=== PATIENT | female | born 1935 | race Two or more races ===

== ENCOUNTER 2019-03-15 00:14 | Inpatient (IN) | payer MEDICARE ==
[~2019-03-15] VITALS: Ht 144.8 cm; Wt 55.1 kg
[2019-03-15 01:25] LABS: HEMATOCRIT 31.5 % (36.0-48.0); MCH 31.8 pg (26.0-34.0); MCHC 34.9 g/dL (31.0-37.0); MEAN PLATELET VOLUME 10.8 fL (7.4-10.4); PLATELET COUNT 255 10x3/uL (130-400); RBC 3.46 10x6/uL (4.00-5.40); RDW 12.6 % (11.5-14.5); WBC 15.7 10x3/uL (4.8-10.8)
[2019-03-15 01:26] LABS: BASOPHILS 0.1 % (0-2); EOSINOPHILS 0 % (0-7); IMMATURE GRANULOCYTES 0.6 % (0-5); LYMPHOCYTES 6.8 % (15-50); MONOCYTES 8.7 % (2-11); NEUTROPHILS 83.8 % (40-80)
[2019-03-15 01:31] VITALS: BP 98/61
--- NOTE | 2019-03-15 01:32 | NUR ---
URINE SAMPLE SENT TO LAB AT THIS TIME.
[2019-03-15 01:43] LABS: APTT 22.1 SECONDS (22.8-39.4); INR 1.01 (0.85-1.17); PROTIME 12.8 SECONDS (11.6-15.0)
[2019-03-15 01:52] LABS: LIPASE 338 U/L (73-393); MAGNESIUM - SERUM 2.4 mg/dL (1.8-2.4)
[2019-03-15 01:53] LABS: ALKALINE PHOSPHATASE 43 U/L (46-116); ALT (SGPT) 17 U/L (10-68); BILIRUBIN - TOTAL 0.53 mg/dL (0.2-1.3); CALC OSMOLALITY 301 mosm/kg (275-300); CALCIUM 9.6 mg/dL (8.5-10.1); CARBON DIOXIDE 23.2 mmol/L (21.0-32.0); CHLORIDE - SERUM 107 mmol/L (98-107); CREATININE - SERUM 1.3 mg/dL (0.6-1.3); GLUCOSE 117 mg/dL (74-106); POTASSIUM - SERUM 4.3 mmol/L (3.5-5.1); SODIUM 140 mmol/L (136-145); UREA NITROGEN 75 mg/dL (7-18); eGFR NON AFRICAN AMERICAN 41 mL/min (90-120)
[2019-03-15 01:54] LABS: CKMB 2.7 U/L (0.0-3.6); CREATINE KINASE 59 UL (21-215); TROPONIN-I 0.152 ng/mL (0.000-0.060)
[2019-03-15 01:55] LABS: APPEARANCE CLEAR (CLEAR); BILIRUBIN NEGATIVE (NEGATIVE); COLOR YELLOW (YELLOW); GLUCOSE NEGATIVE (NEGATIVE); KETONE NEGATIVE (NEGATIVE); NITRITE NEGATIVE (NEGATIVE); PROTEIN NEGATIVE (NEGATIVE); SPECIFIC GRAVITY 1.015 (1.005-1.020); UROBILINOGEN NORMAL (NORMAL)
[2019-03-15 01:57] LABS: BACTERIA NONE SEEN /hpf (NONE SEEN); EPITHELIAL CELLS 0-5 /hpf (0-5); RED CELLS - URINE 0-5 /hpf (0-5); WHITE CELLS - URINE 0-5 /hpf (0-5)
[2019-03-15 02:03] VITALS: BP 117/63
--- NOTE | 2019-03-15 02:10 | NUR ---
PT LEAVING ED VIA STRETCHER FOR ORDERED CT AT THIS TIME. NO SIGNS DISTRESS NOTED.
--- NOTE | 2019-03-15 02:25 | NUR ---
PT BACK IN ROOM FROM MEDICAL IMAGING AT THIS TIME. RESPIRATIONS ARE EVEN AND UNLABORED AT 12/MIN ON ROOM AIR AT 100% SPO2.
--- NOTE | 2019-03-15 02:53 | NUR ---
HAND-OFF REPORT GIVEN TO PRESLEY DE LA FUENTE AT THIS TIME.
[2019-03-15 04:04] VITALS: BP 110/56; BMI 20.6
--- NOTE | 2019-03-15 04:10 | NUR ---
RECIEVED REPORT FROM SUDHAKAR SHERWOOD IN ER. ARRIVED TO FLOOR ON STRETCHER. TRANSFERED SELF TO BED. ALERT AND ORINTED X4. UP AD SURYA. SON AT BEDSIDE. IV TO RIGHT AC WITH NS AT 125/HR AND PROTONIX AT 10CC/HR. DENIES ANY NEEDS AT THIS TIME. ASSESSMENTS COMPLETED.
[2019-03-15 06:00] LABS: ANION GAP 18.9 mmol/L (8-16); BILIRUBIN - TOTAL 0.69 mg/dL (0.2-1.3); CALCIUM 9.6 mg/dL (8.5-10.1); CARBON DIOXIDE 19.5 mmol/L (21.0-32.0); CREATININE - SERUM 1.4 mg/dL (0.6-1.3); POTASSIUM - SERUM 4.4 mmol/L (3.5-5.1)
[2019-03-15 06:01] LABS: ALBUMIN 3.1 g/dL (3.4-5.0); PROTEIN - SERUM 5.9 g/dL (6.4-8.2)
[2019-03-15 07:55] VITALS: BP 117/60
[2019-03-15 08:25] LABS: BASOPHILS 0.1 % (0-2); EOSINOPHILS 0.1 % (0-7); HEMATOCRIT 30.6 % (36.0-48.0); HEMOGLOBIN 10.9 g/dL (12-16); IMMATURE GRANULOCYTES 0.5 % (0-5); MCH 32.2 pg (26.0-34.0); MCHC 35.6 g/dL (31.0-37.0); MCV 90.5 fL (80.0-100.0); MEAN PLATELET VOLUME 11.6 fL (7.4-10.4); MONOCYTES 8.5 % (2-11); NEUTROPHILS 83.8 % (40-80); RBC 3.38 10x6/uL (4.00-5.40); RDW 12.8 % (11.5-14.5); WBC 15.1 10x3/uL (4.8-10.8)
[2019-03-15 08:26] LABS: PLATELET COUNT 178 10x3/uL (130-400)
--- NOTE | 2019-03-15 09:40 | NUR ---
CONSENTS SIGNED FOR EGD. WILL CONT. PLAN OF CARE.
[2019-03-15 12:12] LABS: HEMATOCRIT 24.1 % (36.0-48.0); HEMOGLOBIN 8.5 g/dL (12-16)
[2019-03-15 12:25] VITALS: BP 122/63
--- NOTE | 2019-03-15 12:39 | NUR ---
PRE-OPS GIVEN. TO HUMAN RESOURCES DIRECTOR BY BED.
[2019-03-15 13:14] LABS: % SATURATION 40 % (15-55); IRON 93 ug/dl (35-150); TOTAL IRON BIND CAPACITY 230 ug/dl (260-445); UNSAT IRON BIND CAPACITY 137 ug/dl (150-375)
[2019-03-15 13:42] LABS: FERRITIN 82 ng/mL (3-244)
[2019-03-15 14:27] VITALS: BMI 20.5
--- NOTE | 2019-03-15 19:00 | NUR ---
PT LAYING IN BED. NO S/S OF DISTRESS. DENIES ANY NEEDS AT THIS TIME. FAMILY AT BED SIDE. NAME AND DATE PLACED ON BOARD. PT WILL CALL FOR ASSIST WHEN NEEDED. WILL CPOC
--- NOTE | 2019-03-15 20:12 | NUR ---
SPOKE WITH CHARLES REGARDING PT COMPLAINT OF COUGH. NOTED THE DROP IN H AND H OBTAINED ORDERS AND READ BACK TO VERIFY. PLACING ORDERS NOW FOR CBC REDRAW. CARDIAC ENZYMES AND A CT WITH AND WITHOUT CONTRAST.
[2019-03-15 20:38] LABS: BASOPHILS 0.2 % (0-2); EOSINOPHILS 0.5 % (0-7); HEMOGLOBIN 8.4 g/dL (12-16); IMMATURE GRANULOCYTES 0.4 % (0-5); LYMPHOCYTES 8.3 % (15-50); MCH 32.4 pg (26.0-34.0); MEAN PLATELET VOLUME 10.1 fL (7.4-10.4); MONOCYTES 8.8 % (2-11); NEUTROPHILS 81.8 % (40-80); PLATELET COUNT 172 10x3/uL (130-400)
--- NOTE | 2019-03-15 20:48 | NUR ---
LEFT AC IV 20G FLUSHED AND PLACED A NEW DRSG. CALLED CT BACK AND CT IS ON THERE WAY TO GET PT. PT AWARE AND DENIES ANY QUESTIONS OR CONCERNS. WILL CPOC
[2019-03-15 21:03] LABS: MCV 92.7 fL (80.0-100.0); RBC 2.59 10x6/uL (4.00-5.40); WBC 10.9 10x3/uL (4.8-10.8)
[2019-03-15 21:25] LABS: CKMB 8.4 U/L (0.0-3.6); CREATINE KINASE 123 UL (21-215)
[2019-03-15 21:28] LABS: TROPONIN-I 0.238 ng/mL (0.000-0.060)
--- NOTE | 2019-03-15 21:29 | NUR ---
PT BACK FROM CT. 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
--- NOTE | 2019-03-15 21:33 | NUR ---
PT COMPLAINS OF PAIN IN LEFT AC IV. REMOVED WITH CATH INTACT. WILL REPLACE SOON POSSIBLE. PT HAS NO S/S OF DISTRESS. DENIES ANY QUESTIONS OR CONCERNS. WILL CPOC
--- NOTE | 2019-03-16 00:05 | NUR ---
2 ATTEMPTS FOR PIV ACCESS. UNSUCCESSFUL. WILL ASK ANOTHER NURSE TO ATTEMPT. PT HAS NO S/S OF DISTRESS. BED LOW AND CALL LIGHT IN REACH. WILL CPOC
--- NOTE | 2019-03-16 00:09 | NUR ---
SPOKE WITH ER. NURSE WILL COME OVER AND ATTEMPT IV ACCESS.
--- NOTE | 2019-03-16 03:28 | NUR ---
CALLED ICU AND SPOKE WITH NURSE DUE TO ER NOT STARTING IV YET AT THIS TIME. ICU WILL COME WHEN ABLE
[2019-03-16 04:00] VITALS: BP 132/68
--- NOTE | 2019-03-16 04:34 | NUR ---
22G LEFT WRIST PLACED BY ER NURSE. STARTED NS BACK ORDERED. PT HAS NO S/S OF DISTRESS. WILL CPOC
[2019-03-16 04:41] LABS: BASOPHILS 0.2 % (0-2); EOSINOPHILS 0.4 % (0-7); HEMATOCRIT 24.3 % (36.0-48.0); HEMOGLOBIN 8.4 g/dL (12-16); IMMATURE GRANULOCYTES 0.4 % (0-5); LYMPHOCYTES 9.4 % (15-50); MCH 32.2 pg (26.0-34.0); MCHC 34.6 g/dL (31.0-37.0); MCV 93.1 fL (80.0-100.0); MEAN PLATELET VOLUME 10.4 fL (7.4-10.4); MONOCYTES 8.9 % (2-11); NEUTROPHILS 80.7 % (40-80); PLATELET COUNT 188 10x3/uL (130-400); RBC 2.61 10x6/uL (4.00-5.40); WBC 10.5 10x3/uL (4.8-10.8)
--- NOTE | 2019-03-16 04:42 | NUR ---
PT EXPRESSES CONFUSION BUT ANSWERS QUESTIONS CORRECTLY. NO S/S OF DISTRESS. SON AT BED SIDE. NS INFUSING AT 75 WILL CPOC
[2019-03-16 05:35] LABS: CALCIUM 8.3 mg/dL (8.5-10.1); CARBON DIOXIDE 19.6 mmol/L (21.0-32.0); CHLORIDE - SERUM 115 mmol/L (98-107); CKMB 9.8 U/L (0.0-3.6); CREATINE KINASE 199 UL (21-215); GLUCOSE 108 mg/dL (74-106); SODIUM 148 mmol/L (136-145)
[2019-03-16 05:36] LABS: CALC OSMOLALITY 305 mosm/kg (275-300); POTASSIUM - SERUM 3.3 mmol/L (3.5-5.1); TROPONIN-I 0.213 ng/mL (0.000-0.060); UREA NITROGEN 43 mg/dL (7-18); eGFR NON AFRICAN AMERICAN 56 mL/min (90-120)
--- NOTE | 2019-03-16 07:36 | NUR ---
ASKING ABOUT MED REC. PT IS WRITING MEDICATIONS THAT SHE TAKES DAILY, LIKE LUPUS MEDICATION. PT DOES NOT KNOW MG OF MEDS. INFORMED SON TO BRING LIST WHEN ABLE. SON VERBALIZED UNDERSTANDING, WILL PASS TO DAY NURSE. CARAFATE GIVEN ORDERED. WILL CPOC
--- NOTE | 2019-03-16 07:58 | NUR ---
REPORT RECEIVED. WILL CONTINUE WITH POC. PT CURRENTLY SITTING UP IN BED. CALL LIGHT W/I REACH. PT IS AAO AND UP WITH ASSIST. RR EVEN AND UNLABORED ON RA. NS INFUSING @75ML/HR VIA L.WRIST PIV. PT ON AIRBORNE PRECAUTIONS. NO S/S OF DISTRESS NOTED. PT DENIES ANY NEEDS. WILL CTM.
[2019-03-16 08:30] VITALS: BP 138/69
[2019-03-16 09:31] LABS: CKMB 9.8 U/L (0.0-3.6); CREATINE KINASE 236 UL (21-215)
[2019-03-16 09:33] LABS: TROPONIN-I 0.212 ng/mL (0.000-0.060)
--- NOTE | 2019-03-16 11:52 | NUR ---
SPOKE WITH JARETT AND WHO VERIFIED THAT PT IS CLEAR TO COME OFF OF ISOLATION. WILL REMOVE ISOLATION PRECAUTIONS. WILL CTM.
[2019-03-16 12:59] VITALS: BP 150/80
[2019-03-16] MEDS ORDERED: XANAX0.25 MG PO (13:01)
[2019-03-16] MEDS ORDERED: TENORMIN100 MG PO (13:02)
[2019-03-16] MEDS ORDERED: BUSPIRONE HCL30 MG PO (13:02)
[2019-03-16] MEDS ORDERED: CATAPRES0.1 MG PO (13:03)
[2019-03-16] MEDS ORDERED: SINEQUAN25 MG PO (13:04)
[2019-03-16] MEDS ORDERED: HYDROXYCHLOROQUINE PO (13:08)
[2019-03-16] MEDS ORDERED: RELAFEN500 MG PO (13:09)
[2019-03-16] MEDS ORDERED: ZYRTEC10 MG PO (13:10)
[2019-03-16] MEDS ORDERED: HYDROCODON-ACE1 EAC7 PO (13:10)
[2019-03-16] MEDS ORDERED: CALTRATE+D3 PL1 EACH PO (13:10)
[2019-03-16] MEDS ORDERED: CENTRUM SILVER1 EAC3 PO (13:11)
[2019-03-16] MEDS ORDERED: MAG-OXIDE400 MG PO (13:11)
[2019-03-16] MEDS ORDERED: EX-LAX MAXIMUM25 MG PO (13:12)
[2019-03-16 14:02] VITALS: Ht 144.8 cm; Wt 55.1 kg
[2019-03-16 14:08] LABS: T4 THYROXIN - FREE 1.8 ng/dL (0.76-1.46); THYROID STIMULATING HORMONE 2.11 uIU/mL (0.36-3.74)
[2019-03-16 16:04] VITALS: BP 132/64
--- NOTE | 2019-03-16 16:29 | NUR ---
I have reviewed this patient and I concur with the Shift Assessment completed by the Licensed Practical Nurse today this shift.
--- NOTE | 2019-03-16 19:00 | NUR ---
PATIENT LAYING IN BED. PATIENT HAS NO COMPLAINTS AT THIS TIME. NO DISTRESS NOTED.
[2019-03-16 20:00] VITALS: BP 141/78
[2019-03-17] VITALS: BP 139/91
[2019-03-17 04:00] VITALS: BP 144/79
[2019-03-17 05:38] LABS: BASOPHILS 0.3 % (0-2); EOSINOPHILS 1.3 % (0-7); HEMATOCRIT 20.9 % (36.0-48.0); IMMATURE GRANULOCYTES 0.9 % (0-5); LYMPHOCYTES 11.8 % (15-50); MCH 32.7 pg (26.0-34.0); MCHC 34.9 g/dL (31.0-37.0); MCV 93.7 fL (80.0-100.0); MEAN PLATELET VOLUME 10.3 fL (7.4-10.4); MONOCYTES 10.8 % (2-11); NEUTROPHILS 74.9 % (40-80); PLATELET COUNT 151 10x3/uL (130-400); RBC 2.23 10x6/uL (4.00-5.40); RDW 13.3 % (11.5-14.5); WBC 7.9 10x3/uL (4.8-10.8)
[2019-03-17 06:26] LABS: HEMOGLOBIN 7.3 g/dL (12-16)
[2019-03-17 06:27] LABS: CARBON DIOXIDE 18.6 mmol/L (21.0-32.0); CHLORIDE - SERUM 115 mmol/L (98-107); GLUCOSE 87 mg/dL (74-106); POTASSIUM - SERUM 3.1 mmol/L (3.5-5.1); SODIUM 146 mmol/L (136-145)
[2019-03-17 06:30] LABS: CALC OSMOLALITY 290 mosm/kg (275-300); CREATININE - SERUM 0.6 mg/dL (0.6-1.3); UREA NITROGEN 16 mg/dL (7-18); eGFR NON AFRICAN AMERICAN > 90 mL/min (90-120)
--- NOTE | 2019-03-17 06:37 | NUR ---
PATIENT HAS CRITICAL LAB HGB OF 7.3. CHARLES WRIGHT NOTIFIED. NEW ORDER FOR OCCULT STOOL.
--- NOTE | 2019-03-17 07:24 | NUR ---
REPORT RECEIVED. WILL CONTINUE WITH POC. PT CURRENTLY LYING SEMI FOWLERS. CALL LIGHT W/I REACH. FAMILY AT BEDSIDE. RR EVEN AND UNLABORED ON RA. NS INFUSING @75ML/HR VIA L.FOR PIV ALONG WITH 10MEQ POTASSIUM RIDER. NO S/S OF DISTRESS. PT DENIES ANY NEEDS. WILL CTM.
--- NOTE | 2019-03-17 09:05 | NUR ---
NOTIFIED AMBAR WRIGHT OF PT H&H. VERBALLY ORDERED 2 UNITS OF BLOOD. PLACED ORDER. WILL INFUSE WHEN READY.
--- NOTE | 2019-03-17 11:50 | NUR ---
BRONCHOSCOPY COMPLETE. PT RESTING LYING SEMI FOWLERS. NO S/S OF DISTRESS. RR EVEN AND UNLABORED ON RA. PT DENIES ANY NEEDS. PT WILL REMAIN NPO FOR NEXT HOUR. WILL CTM.
--- NOTE | 2019-03-17 13:25 | NUR ---
DILIP SHERWOOD BEGAN TRANSFUSION OF BLOOD. UPON SPIKING THE FIRST UNIT OF BLOOD, THE BAG TORE ON SPIKING THE BAG AND BEGAN TO LEAK. WASTED THE UNIT OF BLOOD INTO A BIOHAZARD BAG. RETRIEVED SECOND UNIT OF BLOOD. SECOND UNIT CURRENTLY INFUSING. ORDERED ONE MORE UNIT OF BLOOD TO REPLACE LOST FIRST UNIT. PT CURRENTLY RESTING. CALL LIGHT W/I REACH. FAMILY AT BEDSIDE. NO S/S OF RX PRESENT. WILL CTM.
--- NOTE | 2019-03-17 14:00 | NUR ---
NOTIFIED OF THE CRITICAL H&H. HE STATED THAT WAS TO BE EXPECTED AND THAT HE AGREED WITH 2 UNITS OF BLOOD ORDERED. WILL CTM.
--- NOTE | 2019-03-17 14:21 | NUR ---
RECEIVED VERBAL ORDER PER VOICE TO CANCLE OCCULT STOOL ORDER. WILL DC ORDER. WILL CTM.
--- NOTE | 2019-03-17 16:49 | NUR ---
SECOND UNIT OF BLOOD HUNG. VSS AND WNL. WILL CTM.
[2019-03-17 17:02] LABS: EOS BF 6 %; MACROPHAGES BF 54 %; MESOTHELIALS BF 5 %; NEUT - BF 30 %
[2019-03-17 17:29] VITALS: BP 146/75
--- NOTE | 2019-03-17 19:15 | NUR ---
REPORT RECEIVED, WILL CONTINUE POC. PATIENT IS A&OX3, UP WITH ASSIST. SHE HAS IV TO LT FA WITH BLOOD PRODUCTS TRANSFUSING. NO S/SX OF DISTRESS IS NOTED. FAMILY AT BEDSIDE. PATIENT DENIES NEEDS AT THIS TIME. CL IN REACH, BED LOCKED AND LOWERED. WILL CTM.
[2019-03-17 20:00] VITALS: BP 168/87
[2019-03-18] VITALS: BP 180/87
[2019-03-18 04:00] VITALS: BP 147/80
[2019-03-18 05:48] LABS: BASOPHILS 0.1 % (0-2); EOSINOPHILS 0.1 % (0-7); IMMATURE GRANULOCYTES 0.7 % (0-5); LYMPHOCYTES 5.4 % (15-50); MCH 28.2 pg (26.0-34.0); MCHC 34.3 g/dL (31.0-37.0); MEAN PLATELET VOLUME 10.1 fL (7.4-10.4); NEUTROPHILS 86.7 % (40-80)
[2019-03-18 05:49] LABS: CARBON DIOXIDE 17.1 mmol/L (21.0-32.0); CHLORIDE - SERUM 115 mmol/L (98-107); CREATININE - SERUM 0.5 mg/dL (0.6-1.3); GLUCOSE 79 mg/dL (74-106); SODIUM 144 mmol/L (136-145); eGFR NON AFRICAN AMERICAN > 90 mL/min (90-120)
[2019-03-18 05:50] LABS: HEMATOCRIT 27.4 % (36.0-48.0); HEMOGLOBIN 9.4 g/dL (12-16); MCV 82.3 fL (80.0-100.0); PLATELET COUNT 106 10x3/uL (130-400); RBC 3.33 10x6/uL (4.00-5.40); WBC 16.2 10x3/uL (4.8-10.8)
[2019-03-18 05:52] LABS: CALC OSMOLALITY 284 mosm/kg (275-300); UREA NITROGEN 9 mg/dL (7-18)
[2019-03-18 05:53] LABS: CALCIUM 6.3 mg/dL (8.5-10.1); POTASSIUM - SERUM 2.4 mmol/L (3.5-5.1)
--- NOTE | 2019-03-18 07:30 | NUR ---
A/A/OX4. C/O PAIN IN RIGHT ARM WHERE IV IS SITED. THE AREA IS RED AND SLIGHTLY SWOLLEN AND REQUESTS IT BE CHANGED TO ANOTHER SITE. IV RIGHT FOREARM DC'D WITH TIP INTACT. RESTARTED IN RIGHT HAND AND IV INFUSING WELL WITH NO C/O ANY PAIN. ASSESSMENT COMPLETED AND WILL CONTINUE POC. STATES SHE IS FEELING A LITTLE BETTER TODAY. BED IN LOW LOCKED POSITION AND CALL LIGHT IN REACH. RECEIVING POTASSIUM SUPPLEMENT FOR K+ OF 2.4.
[2019-03-18 09:58] VITALS: BP 150/83
--- NOTE | 2019-03-18 11:32 | MORECARE ---
CASE MANAGEMENT DISCHARGE SUMMARY PATIENT: NAKIA WALL UNIT: [id number] ADM DATE: 03/15/19 AGE: 83 : 34 SEX: F ROOM/BED: D.2101 AUTHOR: TESSA LOO PHYSICIAN: REFERRING PHYSICIAN: DALLAS POOLE MD DATE OF SERVICE: 03/18/19 Discharge Plan Patient Name: NAKIA WALL Facility: [facility]:[place] : 1935 Planned Disposition: Home Anticipated Discharge Date: Discharge Date: Expected LOS: Initial Reviewer: [email or web address] Initial Review Date: 03/18/2019 Generated: 03/18/19 12:31 pm Coverage Notice Reviewer: [id number] - Cesar Ayoub Notice Issued Date-Time: 03/18/2019 10:00 Notice Type: IM Discharge Notice Notice Delivered To: Patient Relationship to Patient: Environmental Health Physician Name: Delivery Method: HAND - Hand Delivered Fernanda Days: Prior Verbal Notification: Recipient Understood Notice: Yes Recipient Signature: Yes Med Rec Note Co-signed by Attending: Coverage Notice Comment: Patient Name: NAKIA WALL Page [phone] at 1132 All edits/amendments must be made on the electronic document DICTATION DATE: 03/18/19 1131 BINDING CUTTER: PERI 03/18/19 1131 RPT#: [id number] DC DATE: STATUS: ADM IN [place] [address] [place] [address] END OF REPORT
--- NOTE | 2019-03-18 11:43 | MORECARE ---
CASE MANAGEMENT DISCHARGE SUMMARY PATIENT: NAKIA WALL UNIT: [id number] ADM DATE: 03/15/19 AGE: 83 : 34 SEX: F ROOM/BED: D.2102 AUTHOR: TESSA LOO PHYSICIAN: REFERRING PHYSICIAN: DALLAS POOLE MD DATE OF SERVICE: 03/18/19 Discharge Plan Patient Name: NAKIA WALL Facility: [facility]:[place] : 1935 Planned Disposition: Home Anticipated Discharge Date: Discharge Date: Expected LOS: Initial Reviewer: [email or web address] Initial Review Date: 03/18/2019 Generated: 03/18/19 12:42 pm DCPIA - Discharge Planning Initial Assessment Updated by TOM: Cesar Ayoub on 03/18/19 11:37 am * Is the patient Alert and Oriented? Yes * How many steps to enter\exit or inside your home? 6 W/ RAILS * PCP DR. ELLIS * Pharmacy [facility] [address], [facility] [address] * Preadmission Environment Home with Family * ADLs Independent * Equipment Cane * Other Equipment NO MEDICAL EQUIPMENT PROVIDER PREFERENCE * List name and contact numbers for known caregivers / representatives who currently or will assist patient after discharge: NAIMA WALL, SON, * Verbal permission to speak to the caregivers and representatives has been obtained from the patient. Yes * Community resources currently utilized None * Please name any agencies selected above. NONE * Additional services required to return to the preadmission environment? No * Can the patient safely return to the preadmission environment? Yes * Has this patient been hospitalized within the prior 30 days at any hospital? No Coverage Notice Reviewer: [id number] - Cesar Ayoub Notice Issued Date-Time: 03/18/2019 10:00 Notice Type: IM Discharge Notice Notice Delivered To: Patient Relationship to Patient: Substitute Bus Driver Name: Delivery Method: HAND - Hand Delivered Fernanda Days: Prior Verbal Notification: Recipient Understood Notice: Yes Recipient Signature: Yes Med Rec Note Co-signed by Attending: Coverage Notice Comment: Last DP export: 03/18/19 10:32 a Patient Name: NAKIA WALL Page [phone] at 1143 All edits/amendments must be made on the electronic document DICTATION DATE: 03/18/19 114 NEUROSURGERY PHYSICIAN: PERI 03/18/19 1142 RPT#: [id number] DC DATE: STATUS: ADM IN [facility] [address] [place] [address] END OF REPORT
--- NOTE | 2019-03-18 11:52 | MORECARE ---
CASE MANAGEMENT DISCHARGE SUMMARY PATIENT: NAKIA WALL UNIT: [id number] ADM DATE: 03/15/19 AGE: 83 : 34 SEX: F ROOM/BED: D.2102 AUTHOR: CINDA,DOC PHYSICIAN: REFERRING PHYSICIAN: DALLAS POOLE MD DATE OF SERVICE: 03/18/19 Discharge Plan Patient Name: NAKIA WALL Facility: [facility]:[place] : 1935 Planned Disposition: Home Anticipated Discharge Date: Discharge Date: Expected LOS: Initial Reviewer: [id number] Initial Review Date: 03/18/2019 Generated: 03/18/19 12:51 pm Comments DCP- Discharge Planning Updated by [id number]: Cesar Ayoub on 03/18/19 10:[address] Patient Name: NAKIA WALL Admission Status: ER Accout number: [id number] Admission Date: 03-15-2019 : 1935 Admission Diagnosis:GASTROINTESTINAL HEMORRHAGE, UNSPECIFIED Attending: DALLAS POOLE Current LOS: 3 Anticipated DC Date: Planned Disposition: Home Primary Insurance: MEDICARE A & B Discharge Planning Comments: CM MET WITH PT IN ROOM TO DISCUSS DISCHARGE PLANNING AND NEEDS. PT REPORTS LIVING AT HOME INDEPENDENTLY WITH HER SON. PT HAS A CANE WITH NO MEDICAL EQUIPMENT PROVIDER PREFERENCE. PTHAS NO OUTSIDE SERVICES ASSISTING IN THE HOME. CM DISCUSSED AVAILABILITY OF HOME HEALTH, REHAB SERVICES AND MEDICAL EQUIPMENT. PT DENIES DISCHARGE NEEDS STATING SHE REALLY DOES NOT LIKE OUTSIDE PEOPLE IN HER HOME. PT REPORTS SOME WEAKNESS, CM ENCOURAGED PT TO AGREE TO REHAB BEFORE GOING HOME, PT DECLINES. PT'S DAUGHTER ALSO REPORTS NO PLAN FOR REHAB AND THAT PT WILL RETURN HOME WITH PT'S SON AT DISCHARGE, PT REPORTS HER FAMILY WILL PICK HER UP FOR DISCHARGE HOME. IMPORTANT MESSAGE FROM MEDICARE PROVIDED AND EXPLAINED. PT PLANS TO DISCHARGE HOME WITH HER ADULT SON. PT HAS NO ANTICIPATED DISCHARGE NEEDS. CM TO FOLLOW AND ASSIST IF NEEDED. Professor Of Latin American Studies: Cesar Ayoub DCPIA - Discharge Planning Initial Assessment Updated by [id number]: Cesar Ayoub on 03/18/19 11:37 am * Is the patient Alert and Oriented? Yes * How many steps to enter\exit or inside your home? 6 W/ RAILS * PCP DR. ELLIS * Pharmacy [facility] [address] [place] [address] * Preadmission Environment Home with Family * ADLs Independent * Equipment Cane * Other Equipment NO MEDICAL EQUIPMENT PROVIDER PREFERENCE * List name and contact numbers for known caregivers / representatives who currently or will assist patient after discharge: NAIMA WALL, SON, * Verbal permission to speak to the caregivers and representatives has been obtained from the patient. Yes * Community resources currently utilized None * Please name any agencies selected above. NONE * Additional services required to return to the preadmission environment? No * Can the patient safely return to the preadmission environment? Yes * Has this patient been hospitalized within the prior 30 days at any hospital? No Coverage Notice Reviewer: [id number] Kirill Ayoub Notice Issued Date-Time: 03/18/2019 10:00 Notice Type: IM Discharge Notice Notice Delivered To: Patient Relationship to Patient: Lawn Mower Repairer Name: Delivery Method: HAND - Hand Delivered Fernanda Days: Prior Verbal Notification: Recipient Understood Notice: Yes Recipient Signature: Yes Med Rec Note Co-signed by Attending: Coverage Notice Comment: Last DP export: 03/18/19 10:43 a Patient Name: NAKIA WALL Page [phone] at 1152 All edits/amendments must be made on the electronic document DICTATION DATE: 03/18/191150 VIDEOGRAPHER: PERI 03/18/19 115 RPT#: [id number] DC DATE: STATUS: ADM IN [facility] [address] [place] [address] END OF REPORT
--- NOTE | 2019-03-18 12:35 | NUR ---
Nutrition Follow-up: Visited with pt during breakfast this AM; very little eaten. Pt/family reports decreased appetite for ~2 wks CONSUMER SAFETY INSPECTOR. States that food just doesn't taste good. Also having some difficulty chewing; reports some of her teeth have fallen out since being sick. Diet: Regular Wt: 121# Last BM: 03/17 Labs reviewed Meds reviewed Adjusted diet: Regular Dental Soft. +Ensure 1x/day. [place] food preferences. RD following.
[2019-03-18 13:46] VITALS: BP 151/88
[2019-03-18 15:10] LABS: AFB SPECIMEN PROCESSING Concentration (())
--- NOTE | 2019-03-18 16:40 | NUR ---
I have reviewed this patient and I concur with the Shift Assessment completed by the Licensed Practical Nurse today this shift.
[2019-03-18 17:59] VITALS: BP 165/99
--- NOTE | 2019-03-18 19:30 | NUR ---
PT CARE ASSUMED. RR EVEN AN UNLABORED. NO S/S OF DISTRESS NOTED. DENIES NEEDS AT THIS TIME. WILL CPOC.
[2019-03-18 20:00] VITALS: BP 142/84
--- NOTE | 2019-03-18 22:32 | NUR ---
D/C IV TO RIGHT HAND. CATHETER TIP INTACT.
[2019-03-19] VITALS: BP 165/93
[2019-03-19 03:47] LABS: CALC OSMOLALITY 283 mosm/kg (275-300); CARBON DIOXIDE 18.9 mmol/L (21.0-32.0); CHLORIDE - SERUM 111 mmol/L (98-107); CREATININE - SERUM 0.6 mg/dL (0.6-1.3); GLUCOSE 100 mg/dL (74-106); POTASSIUM - SERUM 3.2 mmol/L (3.5-5.1); SODIUM 143 mmol/L (136-145); UREA NITROGEN 11 mg/dL (7-18); eGFR NON AFRICAN AMERICAN > 90 mL/min (90-120)
[2019-03-19 03:57] LABS: BASOPHILS 0.1 % (0-2); EOSINOPHILS 0.5 % (0-7); IMMATURE GRANULOCYTES 0.5 % (0-5); LYMPHOCYTES 3.9 % (15-50); MCH 28.6 pg (26.0-34.0); MCHC 34.9 g/dL (31.0-37.0); MCV 81.9 fL (80.0-100.0); MONOCYTES 8.8 % (2-11); NEUTROPHILS 86.2 % (40-80); WBC 12.7 10x3/uL (4.8-10.8)
[2019-03-19 03:58] LABS: HEMATOCRIT 33.5 % (36.0-48.0); HEMOGLOBIN 11.7 g/dL (12-16); PLATELET COUNT 133 10x3/uL (130-400); RBC 4.09 10x6/uL (4.00-5.40)
[2019-03-19 04:00] VITALS: BP 181/98
[2019-03-19 04:01] LABS: CALCIUM 8.3 mg/dL (8.5-10.1)
--- NOTE | 2019-03-19 07:30 | NUR ---
A/A/OX4. EXPRESSES DESIRE TO BE ABLE TO GO HOME TODAY. DENIES ANY PAIN, DISCOMFORT OR SOB. NO REQUESTS VOICED. ASSESSMENT COMPLETED AND WILL CONTINUE POC. BED IN LOW LOCKED POSITION, CALL LIGHT IN REACH.
[2019-03-19 09:58] VITALS: BP 173/81
[2019-03-19] MEDS ORDERED: PROTONIX40 MG PO (14:16)
[2019-03-19] MEDS ORDERED: CARAFATE1 G PO (14:16)
--- NOTE | 2019-03-19 14:32 | NUR ---
RESTING IN BED. NO DISTRESS. PATIENTS DAUGHTER AT BEDSIDE. PATIENT AWAITING HER DISCHARGE PAPERS AT THIS TIME.
[2019-03-19 14:51] VITALS: BP 167/82
--- NOTE | 2019-03-19 16:10 | NUR ---
DISCHARGE INSTRUCTIONS REVIEWED WITH PT AND HER DAUGHTER. BOTH VERBALIZE UNDERSTANDING WITH NO QUESTIONS. SL REMOVED FROM LEFT AC WITH CATH TIP INTACT. LEFT FLOOR VIA W/C WITH ALL PERSONAL BELONGINGS AND LEFT FACILITY VIA PRIVATE VEHICLE WITH DAUGHTER.
--- NOTE | 2019-03-20 09:24 | EC ---
PATIENT:NAKIA WALL DATE OF SERVICE: 03/15/19 SEX: F MEDICAL RECORD: [id number] DATE OF : [birth year] LOCATION:D.M2 D.210 AGE OF PATIENT: 83 ADMISSION DATE: 03/15/19 REFERRING PHYSICIAN: INTERPRETING PHYSICIAN: LINDSAY WHEELER MD ECHOCARDIOGRAM REPORT ECHO CHARGES 4 ECHO COMPLETE Date: 03/15/19 CLINICAL DIAGNOSIS: PERICARDIAL EFFUSION ECHOCARDIOGRAPHIC MEASUREMENTS (adult normal given) AC root (d.<3.7cm) 2.6 cm LV Septum d (<1.2 cm> 0.8 cm Valve Excursion 1.4 cm LV Septum (systole) 1.2 cm Left Atria (s.<4.0cm> 3.3 cm LVPW d(<1.2cm) 1.0 cm RV (d.<2.3cm) 2.1 cm LVPW (sytole) 1.2 cm LV diastole(<5.6CM) 3.5 cm MV E-F(>70mm/sec) cm LV systole 2.0 cm LVOT Diameter 1.3 cm MV exc.(>10mm) cm Est.ejection fraction (50-75%) % DOPPLER: LVIT cm/sec A 136 cm/sec E 93 cm/sec LA cm/sec RVSP 41.0 mmHg LVOT 149 cm/sec AOP1/2T m/s Asc. Ao 147 cm/sec RVOT 148 cm/sec RA cm/sec PA 138 cm/sec AV Gradient Peak 8.7 mmHg AV Mean 7.3 mmHg AV Area 1.1 cm MV Gradient Peak mmHg MV Mean mmHg MV Area cm COMMENTS: Model And Mold Maker: Loren UMANA Kitman: 3 Dr. Perez TAPE# PACS Pericardial Effusion Y DATE OF SERVICE: Adequate 2D, color flow, spectral Doppler, and M-mode. No LVH. LV internal dimensions are normal. Wall motion is normal. EF is greater than or equal to 55%. Aortic valve is tricuspid. No evidence of stenosis by Doppler interrogation. Left atrium is normal. Mitral valve shows no prolapse. Trace MR. Right-sided chambers appear grossly normal. Mild TR. Moderate to mostly anterior located pericardial effusion is present. This shows no evidence of hemodynamic compromise. ECHOCARDIOGRAM REPORT [id number] NAKIA WALL TRANSINT:[id number] Voice Confirmation ID: [id number] DOCUMENT ID: [id number] LINDSAY WHEELER MD at 0924 CC: [id number] DICTATION DATE: 03/16/19 1029 MELTER SUPERVISOR: 03/16/19 1230 DIS IN 03/19/[address] [place] [id number] [place] [id number]
--- NOTE | 2019-03-21 08:44 | MORECARE ---
CASE MANAGEMENT DISCHARGE SUMMARY PATIENT: NAKIA WALL UNIT: [id number] ADM DATE: 03/15/19 AGE: 83 : 34 SEX: F ROOM/BED: D.210 AUTHOR: CINDA,DOC PHYSICIAN: REFERRING PHYSICIAN: DALLAS POOLE MD DATE OF SERVICE: 03/21/19 Discharge Plan Patient Name: NAKIA WALL Facility: [facility]:[place] : 1935 Planned Disposition: Home Anticipated Discharge Date: 03/19/19 Discharge Date: 03/19/2019 Expected LOS: 4 Initial Reviewer: [id number] Initial Review Date: 03/18/2019 Generated: 03/21/19 9:44 am Comments DCP- Discharge Planning Updated by [id number]: Cesar Ayoub on 03/18/19 10:[address] Patient Name: NAKIA WALL Admission Status: ER Accout number: [id number] Admission Date: 03-15-2019 : 1935 Admission Diagnosis:GASTROINTESTINAL HEMORRHAGE, UNSPECIFIED Attending: DALLAS POOLE Current LOS: 3 Anticipated DC Date: Planned Disposition: Home Primary Insurance: MEDICARE A & B Discharge Planning Comments: CM MET WITH PT IN ROOM TO DISCUSS DISCHARGE PLANNING AND NEEDS. PT REPORTS LIVING AT HOME INDEPENDENTLY WITH HER SON. PT HAS A CANE WITH NO MEDICAL EQUIPMENT PROVIDER PREFERENCE. PTHAS NO OUTSIDE SERVICES ASSISTING IN THE HOME. CM DISCUSSED AVAILABILITY OF HOME HEALTH, REHAB SERVICES AND MEDICAL EQUIPMENT. PT DENIES DISCHARGE NEEDS STATING SHE REALLY DOES NOT LIKE OUTSIDE PEOPLE IN HER HOME. PT REPORTS SOME WEAKNESS, CM ENCOURAGED PT TO AGREE TO REHAB BEFORE GOING HOME, PT DECLINES. PT'S DAUGHTER ALSO REPORTS NO PLAN FOR REHAB AND THAT PT WILL RETURN HOME WITH PT'S SON AT DISCHARGE, PT REPORTS HER FAMILY WILL PICK HER UP FOR DISCHARGE HOME. IMPORTANT MESSAGE FROM MEDICARE PROVIDED AND EXPLAINED. PT PLANS TO DISCHARGE HOME WITH HER ADULT SON. PT HAS NO ANTICIPATED DISCHARGE NEEDS. CM TO FOLLOW AND ASSIST IF NEEDED. Table Machine Operator: Cesar Ayoub DCPIA - Discharge Planning Initial Assessment Updated by [id number]: Cesar Ayoub on 03/18/19 11:37 am * Is the patient Alert and Oriented? Yes * How many steps to enter\exit or inside your home? 6 W/ RAILS * PCP DR. ELLIS * [facility] [address] [place] [address] * Preadmission Environment Home with Family * ADLs Independent * Equipment Cane * Other Equipment NO MEDICAL EQUIPMENT PROVIDER PREFERENCE * List name and contact numbers for known caregivers / representatives who currently or will assist patient after discharge: NAIMA WALL, SON, * Verbal permission to speak to the caregivers and representatives has been obtained from the patient. Yes * Community resources currently utilized None * Please name any agencies selected above. NONE * Additional services required to return to the preadmission environment? No * Can the patient safely return to the preadmission environment? Yes * Has this patient been hospitalized within the prior 30 days at any hospital? No Coverage Notice Reviewer: [id number] Kirill Ayoub Notice Issued Date-Time: 03/18/2019 10:00 Notice Type: IM Discharge Notice Notice Delivered To: Patient Relationship to Patient: Through Operator Name: Delivery Method: HAND - Hand Delivered Fernanda Days: Prior Verbal Notification: Recipient Understood Notice: Yes Recipient Signature: Yes Med Rec Note Co-signed by Attending: Coverage Notice Comment: Last DP export: 03/18/19 10:52 a Patient Name: NAKIA WALL Page [phone] at 0844 All edits/amendments must be made on the electronic document DICTATION DATE: 03/21/19842 HOME SALES CONSULTANT: PERI 03/21/19842 RPT#: [id number] DC DATE:03/19/19 STATUS: DIS IN [facility] [address] [place] [address] END OF REPORT
[2019-03-21 10:09] LABS: FUNGUS STAIN Final report (())
[2019-03-25 19:08] LABS: FUNGUS CULTURE RESULT 1 Candida albicans (())
[2019-04-14 14:09] LABS: FUNGUS MYCOLOGY CULTURE Final report (())
[2019-05-10 09:10] LABS: ACID FAST CULTURE Negative (()); ACID FAST SMEAR Negative (())
== END 2019-03-19 16:39 | disposition home or self-care (01) | DRG 378 ==
LOC: D.ER 00:14 → D.M2 02:25
PROVIDERS: Family Medicine; Internal Medicine Gastroenterology; ADMIT Internal Medicine Nephrology; ATTEND Internal Medicine Nephrology
PROC: 0DJ08ZZ Inspection of Upper Intestinal Tract, Via Natural or Artificial Opening Endoscopic (ICD-10-PCS; principal; 2019-03-15 12:30)
PROC: 0B9G7ZX Drainage of Left Upper Lung Lobe, Via Natural or Artificial Opening, Diagnostic (ICD-10-PCS; 2019-03-17)
DX: K92.2 Gastrointestinal hemorrhage, unspecified (principal); I31.3 Pericardial effusion (noninflammatory); D62 Acute posthemorrhagic anemia; N17.9 Acute kidney failure, unspecified; K27.9 Peptic ulcer, site unspecified, unspecified as acute or chronic, without hemorrhage or perforation; K21.0 Gastro-esophageal reflux disease with esophagitis; J47.9 Bronchiectasis, uncomplicated; M32.9 Systemic lupus erythematosus, unspecified; R09.82 Postnasal drip; Z87.11 Personal history of peptic ulcer disease

== ENCOUNTER 2019-08-10 09:36 | Inpatient (IN) | payer MEDICARE ==
[~2019-08-10] VITALS: Ht 144.8 cm; Wt 40.0 kg
[2019-08-10 00:30] VITALS: BP 131/66
[~2019-08-10 09:36] MED LIST: BUSPIRONE HCL30 MG PO; CALTRATE+D3 PL1 EACH PO; CARAFATE1 G PO; CATAPRES0.1 MG PO; CENTRUM SILVER1 EAC3 PO; EX-LAX MAXIMUM25 MG PO; HYDROCODON-ACE1 EAC7 PO; HYDROXYCHLOROQUINE PO; MAG-OXIDE400 MG PO; PROTONIX40 MG PO; RELAFEN500 MG PO; SINEQUAN25 MG PO; TENORMIN100 MG PO; XANAX0.25 MG PO; ZYRTEC10 MG PO
--- NOTE | 2019-08-10 09:46 | NUR ---
PATIENT STATES HER SHORTNESS OF BREATH IS FROM ANXIELTY
--- NOTE | 2019-08-10 09:58 | NUR ---
OZZIE DISCUSSED WITH DR MONTANEZ, WILL NOT OBTAIN ABGS OR UPDRAFT AT THIS TIME
[2019-08-10 10:39] LABS: CALC OSMOLALITY 289 mosm/kg (275-300); CARBON DIOXIDE 26.6 mmol/L (21.0-32.0); CHLORIDE - SERUM 107 mmol/L (98-107); CREATININE - SERUM 0.9 mg/dL (0.6-1.3); GLUCOSE 97 mg/dL (74-106); POTASSIUM - SERUM 3.7 mmol/L (3.5-5.1); SODIUM 145 mmol/L (136-145); UREA NITROGEN 14 mg/dL (7-18); eGFR NON AFRICAN AMERICAN 63 mL/min (90-120)
[2019-08-10 10:43] LABS: BASOPHILS 0.1 % (0-2); EOSINOPHILS 0.7 % (0-7); HEMATOCRIT 40.8 % (36.0-48.0); HEMOGLOBIN 13.8 g/dL (12-16); IMMATURE GRANULOCYTES 0.2 % (0-5); LYMPHOCYTES 9.1 % (15-50); MCH 31.2 pg (26.0-34.0); MCHC 33.8 g/dL (31.0-37.0); MCV 92.3 fL (80.0-100.0); MEAN PLATELET VOLUME 10.5 fL (7.4-10.4); MONOCYTES 11.6 % (2-11); NEUTROPHILS 78.3 % (40-80); PLATELET COUNT 208 10x3/uL (130-400); RBC 4.42 10x6/uL (4.00-5.40); RDW 12.2 % (11.5-14.5); WBC 9.1 10x3/uL (4.8-10.8)
[2019-08-10 10:44] LABS: APTT 29.1 SECONDS (22.8-39.4); PROTIME 13.1 SECONDS (11.6-15.0)
--- NOTE | 2019-08-10 10:49 | NUR ---
DR. KAUR NOTIFIED AND REVIEWED PATIENT'S BEHAVIOR AND ASSESSMENT RESULTS. PATIENT IS A LOW RISK PER DR. MARKS. N RESOURCE INFO GIVEN TO AND REVIEWED WITH PATIENT. SHE VERBALIZES UNDERSTANDING. ASKED TO TALK WITH HER PRIMARY CARE DOCTOR ABOUT HER MEDICATIONS AND NOT TO STOP MEDICATIONS ABRUPTLY.
[2019-08-10 11:00] LABS: ALBUMIN 3.8 g/dL (3.4-5.0); ALKALINE PHOSPHATASE 84 U/L (46-116); ALT (SGPT) 22 U/L (10-68); BILIRUBIN - TOTAL 0.73 mg/dL (0.2-1.3); CKMB 5.3 U/L (0.0-3.6); CREATINE KINASE 138 UL (21-215); PRO BNP 718 pg/mL (0-450); PROTEIN - SERUM 6.8 g/dL (6.4-8.2)
[2019-08-10 11:09] LABS: TROPONIN-I 0.098 ng/mL (0.000-0.060)
[2019-08-10 11:16] LABS: APPEARANCE CLEAR (CLEAR); BILIRUBIN NEGATIVE (NEGATIVE); COLOR YELLOW (YELLOW); GLUCOSE NEGATIVE (NEGATIVE); KETONE NEGATIVE (NEGATIVE); NITRITE NEGATIVE (NEGATIVE); PROTEIN TRACE mg/dL (NEGATIVE); SPECIFIC GRAVITY 1.005 (1.005-1.020); UROBILINOGEN NORMAL (NORMAL)
[2019-08-10 11:17] LABS: BACTERIA FEW /hpf (NEGATIVE); EPITHELIAL CELLS OCC /hpf (0-5); WHITE CELLS - URINE NSEEN /hpf (NEGATIVE)
[2019-08-10 17:00] VITALS: BP 162/89
[2019-08-10 17:14] LABS: CREATINE KINASE 133 UL (21-215)
[2019-08-10 17:22] LABS: TROPONIN-I 0.111 ng/mL (0.000-0.060)
--- NOTE | 2019-08-10 17:28 | NUR ---
TRANSFER FROM ER BY W/C. RAJIINTED TO ROOM. CALL LIGHT IN REACH. WILL CONT. PLAN OF CARE.
[2019-08-10 17:46] VITALS: BP 186/100; Ht 144.8 cm; Wt 40.0 kg
--- NOTE | 2019-08-10 19:29 | NUR ---
RECEIVED BEDSIDE REPORT. PATIENT IS ALERT AND ORIENTED, RESTING COMFORTABLY IN BED. RESPIRATIONS ARE EVEN AND UNLABORED. NO S/S OF DISTRESS. NO C/OPAIN. CALL LIGHT WITHIN REACH. WILL CPOC.
[2019-08-10 20:30] VITALS: BP 164/83
[2019-08-10 22:53] LABS: CKMB 4.5 U/L (0.0-3.6); CREATINE KINASE 128 UL (21-215)
[2019-08-10 22:55] LABS: TROPONIN-I 0.097 ng/mL (0.000-0.060)
--- NOTE | 2019-08-11 02:36 | NUR ---
PATIENT RESTING COMFORTABLY. RESPIRATIONS ARE EVEN AND UNLABORED. NO S/S OF DISTRESS. CALL LIGHT WITHIN REACH.
[2019-08-11 05:02] LABS: BASOPHILS 0 % (0-2); EOSINOPHILS 0 % (0-7); HEMATOCRIT 38.6 % (36.0-48.0); HEMOGLOBIN 13.1 g/dL (12-16); IMMATURE GRANULOCYTES 0.1 % (0-5); LYMPHOCYTES 4.5 % (15-50); MCH 30.8 pg (26.0-34.0); MCHC 33.9 g/dL (31.0-37.0); MCV 90.8 fL (80.0-100.0); MEAN PLATELET VOLUME 11.3 fL (7.4-10.4); MONOCYTES 1.3 % (2-11); NEUTROPHILS 94.1 % (40-80); PLATELET COUNT 226 10x3/uL (130-400); RBC 4.25 10x6/uL (4.00-5.40); RDW 12.3 % (11.5-14.5); WBC 7.5 10x3/uL (4.8-10.8)
[2019-08-11 05:47] LABS: CARBON DIOXIDE 22.9 mmol/L (21.0-32.0); CHLORIDE - SERUM 104 mmol/L (98-107); CKMB 5.4 U/L (0.0-3.6); CREATINE KINASE 140 UL (21-215); POTASSIUM - SERUM 3.9 mmol/L (3.5-5.1); SODIUM 140 mmol/L (136-145); eGFR NON AFRICAN AMERICAN 56 mL/min (90-120)
[2019-08-11 05:58] LABS: CALC OSMOLALITY 285 mosm/kg (275-300); GLUCOSE 149 mg/dL (74-106); TROPONIN-I 0.107 ng/mL (0.000-0.060); UREA NITROGEN 25 mg/dL (7-18)
--- NOTE | 2019-08-11 08:00 | NUR ---
COPPER FLOTATION OPERATOR AT BS GETTING VS. DAUGHTER EXPLAINS SOMETHING IS WRONG AND TO GO GET NURSE. CONFUSION NOTED. CAULD NOT TELL ME WHO SHE IS. SPEECH IS GARBLED AND DID NOT MAKE SENCE. RAPID RESPONCE CALLED. NOTIFIED. LAB AND STAT CT ORDERED. VS 129/81 76 94% RA 97.3 TEMP. BS 144.
--- NOTE | 2019-08-11 08:25 | NUR ---
LEAVING FOR CT BY BED. WILL MONITOR.
[2019-08-11 08:27] VITALS: BP 129/81
[2019-08-11 08:31] LABS: BASOPHILS 0 % (0-2); EOSINOPHILS 0 % (0-7); HEMATOCRIT 41.8 % (36.0-48.0); HEMOGLOBIN 14.9 g/dL (12-16); IMMATURE GRANULOCYTES 0.4 % (0-5); LYMPHOCYTES 6.1 % (15-50); MCH 32.3 pg (26.0-34.0); MCHC 35.6 g/dL (31.0-37.0); MCV 90.5 fL (80.0-100.0); NEUTROPHILS 91.5 % (40-80); PLATELET COUNT 215 10x3/uL (130-400); RBC 4.62 10x6/uL (4.00-5.40); RDW 12.3 % (11.5-14.5)
[2019-08-11 08:34] LABS: WBC 9.5 10x3/uL (4.8-10.8)
[2019-08-11 08:46] LABS: ALBUMIN 4.2 g/dL (3.4-5.0); ANION GAP 18.6 mmol/L (8-16); BILIRUBIN - TOTAL 0.85 mg/dL (0.2-1.3); CALCIUM 9.8 mg/dL (8.5-10.1); CARBON DIOXIDE 23.5 mmol/L (21.0-32.0); POTASSIUM - SERUM 4.1 mmol/L (3.5-5.1)
--- NOTE | 2019-08-11 14:04 | CN ---
PATIENT NAME:NAKIA SKY MEDICAL RECORD: [id number] : 33 LOCATION:D.[facility] D.2118 ADMIT DATE: 08/10/19 ACCOUNT: [id number] CONSULTING PHYSICIAN: LAVINIA LOPEZ MD REFERRING PHYSICIAN: LINDSAY MOSLEY MD DATE OF CONSULTATION: 08/10/2019 CARDIOLOGY CONSULTATION DIAGNOSES: 1. Non-Q-wave myocardial infarction/elevated troponin. 2. Hypertension. 3. Shortness of breath, dyspnea on exertion. 4. Gastroesophageal reflux disease. HISTORY OF PRESENT ILLNESS: Mrs. Sky has no cardiac history. Today, she became very short of breath, presents to the Emergency Room. Her troponin is elevated. She does not have any acute ST-T abnormalities on her EKG. She denies chest pain or chest pressure. She is still having shortness of breath. Only cardiac workup that she has had in the past that was an echocardiogram in April when she was in with a similar episode and treated with bronchitis during that admission, her echocardiogram was with normal ejection fraction, normal wall motion. PHYSICAL EXAMINATION: CONSTITUTIONAL/GENERAL APPEARANCE: Well nourished, well developed, appears stated age. EYES: Lids and conjunctivae noninjected. No discharge. No pallor. ENT: Lips within normal limit. No cyanosis. No pallor. NECK: Carotid arteries, bilateral normal upstroke. No bruits. No thrills. No jugular venous pressure or distention. CERVICAL LYMPH NODES: Nontender. Nonenlarged. THYROID: Not enlarged. No nodules. CARDIOVASCULAR: Precordial exam, nondisplaced. No heaves or pericardial thrills. Rate and rhythm, regular. Heart sounds, normal S1, normal S2. No S3, no gallop, no rub. Systolic murmur, not heard. Diastolic murmur, not heard. RESPIRATORY: Respiratory effort, unlabored. Normal curvature. No thoracic deformity. No chest wall tenderness. Percussion, resonant. Auscultation, clear. No wheezes, no rales, no rhonchi. ABDOMEN: Soft, nondistended, nontender. No abdominal pain, no vomiting and normal appetite. MUSCULOSKELETAL: No joint tenderness, normal gait, normal tone. SKIN: Warm and dry. OVERALL IMPRESSION: Non-Q-wave myocardial infarction. At this time, placed her on aspirin and nitropatch. Continue her atenolol, get a repeat echocardiogram. If wall motion abnormalities are present or the ejection fraction has dropped off would be in favor of coronary angiography in light of the non-Q-wave myocardial infarction and continued shortness of breath. TRANSINT:[id number] Voice Confirmation ID: [id number] DOCUMENT ID: [id number] CONSULT REPORT [id number] NAKIA SKY JEFFREY MD at 1404 CC: [id number] DICTATION DATE: 08/10/191710 SUPERVISOR CARTOGRAPHY: 08/11/19 0327 DIS IN 08/11/19 [facility] [address] [place] [address]
--- NOTE | 2019-08-12 09:12 | MORECARE ---
CASE MANAGEMENT DISCHARGE SUMMARY PATIENT: NAKIA WALL UNIT: [id number] ADM DATE: 08/10/19 AGE: 84 : 34 SEX: F ROOM/BED: D.9928 AUTHOR: TESSA LOO PHYSICIAN: REFERRING PHYSICIAN: LINDSAY MOSLEY MD DATE OF SERVICE: 08/12/19 Discharge Plan Patient Name: [facility]AK[facility]ALL [facility] [facility] 1935 Planned Disposition: Acute Care Hospital Anticipated Discharge Date: 08/11/19 Discharge Date: 08/11/2019 Expected LOS: 1 Initial Reviewer: [email or web address] Initial Review Date: 08/12/2019 Generated: 08/12/19 10:11 am Patient Name: NAKIA WALL Page [phone] at 0912 All edits/amendments must be made on the electronic document DICTATION DATE: 08/12/19911 ROLLER PRINTER: PERI 08/12/19911 RPT#: [id number] DC DATE:08/11/19 STATUS: DIS IN [facility] [address] [place] [address] END OF REPORT
== END 2019-08-11 12:01 | disposition short-term general hospital (02) | DRG 280 ==
LOC: D.ER 09:36 → D.M2 15:40
PROVIDERS: Family Medicine; ADMIT Family Medicine; ATTEND Family Medicine
DX: I21.4 Non-ST elevation (NSTEMI) myocardial infarction (principal); I63.9 Cerebral infarction, unspecified; J44.9 Chronic obstructive pulmonary disease, unspecified; M32.9 Systemic lupus erythematosus, unspecified; I10 Essential (primary) hypertension; K21.9 Gastro-esophageal reflux disease without esophagitis

== ENCOUNTER 2019-08-11 08:48 | Emergency (ER) | payer MEDICARE ==
[~2019-08-11] VITALS: Ht 144.8 cm; Wt 40.1 kg
[2019-08-11 08:54] VITALS: Ht 144.8 cm; Wt 40.1 kg
[2019-08-11 11:57] VITALS: BP 148/73
== END 2019-08-11 11:58 | disposition other institution (70) ==
LOC: D.ER 08:48
DX: I63.9 Cerebral infarction, unspecified (principal); I82.90 Acute embolism and thrombosis of unspecified vein

== ENCOUNTER 2019-08-16 13:17 | Inpatient (IN) | payer MEDICARE ==
[~2019-08-16] VITALS: Ht 144.8 cm; Wt 40.8 kg
[~2019-08-16 13:17] MED LIST changes: -HYDROXYCHLOROQUINE PO; +PLAQUENIL PO
--- NOTE | 2019-08-16 18:25 | NUR ---
ASSISTED PT FROM PRIVATE VEHICLE INTO HOSPITAL VIA W/C ACCOMPANIED BY SON. ORIENTED TO UNIT, ROOM, BATHROOM, AND FUNCTIONS OF REMOTE. DENIES ANY NEEDS OR PAIN. NO SIGNS OF ACUTE DISTRESS NOTED. CL IN REACH. BED ALARM ON.
--- NOTE | 2019-08-16 20:00 | NUR ---
PATIENT RECEIVED SITTING UP IN BED. ASSESSMENT & VITAL SIGNS DONE. CHARGE NURSE ASSESSED PATIENT. PATIENT SON IN ROOM. BED LOW. ALARM ON. CALL LIGHT WITHIN REACH. WILL CONTINUE TO MONITOR.
[2019-08-16 21:07] VITALS: BP 135/70
[2019-08-16 23:15] VITALS: BP 135/70; BMI 19.5
--- NOTE | 2019-08-17 00:56 | NUR ---
PATIENT EYES CLOSED. RESPIRATIONS 18 & EVEN. BED LOW. ALARM ON. CALL LIGHT WITHIN REACH. WILL CONTINUE TO MONITOR.
[2019-08-17] MEDS ORDERED: BAYER CHEWABLE81 MG PO (04:06)
[2019-08-17] MEDS ORDERED: LIPITOR40 MG PO (04:07)
[2019-08-17] MEDS ORDERED: MELATONIN 3 MG1 TAB PO (04:08)
[2019-08-17] MEDS ORDERED: LOPRESSOR25 MG PO (04:08)
[2019-08-17] MEDS ORDERED: MACROBID100 MG PO (04:10)
[2019-08-17 08:00] VITALS: BP 126/72
--- NOTE | 2019-08-17 08:00 | NUR ---
SHIFT ASSMT COMPLETED.
[2019-08-17 08:18] LABS: BASOPHILS 0.1 % (0-2); EOSINOPHILS 2.1 % (0-7); HEMATOCRIT 26.9 % (36.0-48.0); HEMOGLOBIN 8.9 g/dL (12-16); IMMATURE GRANULOCYTES 2.1 % (0-5); LYMPHOCYTES 11.1 % (15-50); MCH 30.2 pg (26.0-34.0); MCHC 33.1 g/dL (31.0-37.0); MCV 91.2 fL (80.0-100.0); MEAN PLATELET VOLUME 11.8 fL (7.4-10.4); MONOCYTES 12.6 % (2-11); PLATELET COUNT 204 10x3/uL (130-400); RBC 2.95 10x6/uL (4.00-5.40); RDW 12.7 % (11.5-14.5)
[2019-08-17 10:05] LABS: CALCIUM 8.4 mg/dL (8.5-10.1); CARBON DIOXIDE 26.7 mmol/L (21.0-32.0); POTASSIUM - SERUM 3.7 mmol/L (3.5-5.1)
[2019-08-17 15:50] VITALS: Ht 144.8 cm; Wt 40.8 kg
--- NOTE | 2019-08-17 16:37 | NUR ---
PLACED ON TELEMETRY.SR 64.
[2019-08-17 20:20] VITALS: BP 108/60
--- NOTE | 2019-08-17 21:53 | NUR ---
LYING IN BED RESTING WITH EYES CLOSED. NO SIGNS OR SYMPTOMS OF DISTRESS. EASILY AWAKEN WITH VERBAL STIMULATION. RESPIRATIONS EVEN AND UNLABORED. NO COMPLAINTS OF PAIN AT THIS TIME. BOWELL SOUND ACTIVE x4. PT IS UNSURE OF WHEN LAST BOWELL MOVEMENT. PT IS ALERT TO PERSON AND PLACE. RIGHT SIDE WEAKNESS NOTED. TELEMETRY IS 75 SINUS RYTHUM. PT TOLERATED MEDICATIONS WELL. PT IS WANTING TO CALL SON NAIMA. PT HAS NO COMPLAINTS AT THIS TIME WILL CONTINUE TO MONITOR.
--- NOTE | 2019-08-18 01:23 | NUR ---
PT RESTING IN BED QUEITLY. SEEMS TO BE CONFUSED AT TIMES. EASILY AWAKEN WITH VERBAL STIMULATION. ALERT AND ORIENTED TO PERSON. PT STATES THAT SHE IS NOT IN PAIN AT THE CURRENT TIME. PT ENCOURAGED TO CALL FOR HELP WHEN NEEDED. SON WAS AT BEDSIDE BUT HAS SINCE LEFT. SON WAS CONCERNED ABOUT CHANGE OF MENTAL STATUS. SUPERVISOR CONTINGENTS ARAVIND SOTO WAS NOTIFIED. BED IS IN LOWEST POSITION AND CALL LIGHT IS WITHIN REACH. WILL CONTINUE TO MONITOR.
--- NOTE | 2019-08-18 02:49 | NUR ---
ASSISTED TO RESTROOM VOID X1 ASSISTED TO RESTROOM VIA WHEELCHAIR. PT TOLERATED WELL.
--- NOTE | 2019-08-18 05:53 | NUR ---
PT ASKED FOR HEAD OF BED TO BE REPOSITIONED. ALERT TO PERSON AND PLACE. NO COMPLAINTS OF PAIN AT THIS TIME. WILL CONTINUE TO MONITOR.
[2019-08-18 08:09] VITALS: BP 116/65
--- NOTE | 2019-08-18 20:00 | NUR ---
PAYTIENT RECEIVED SITTING UP IN BED. ASSESSMENT & VITAL SIGNS DONE. NO C/O PAIN OR DISTRESS. BED LOW. ALARM ON. CALL LIGHT WITHIN REACH. WILL CONTINUE TO MONITOR.
[2019-08-18 20:09] VITALS: BP 125/70
--- NOTE | 2019-08-18 22:15 | NUR ---
PATIENT IV STOPPED. IV SITE FLUSHED WITH 10CC OF NS. PATIENT TOLERATED IT WELL. NO ADVERSE REACTION TO IV NOTED AT THIS TIME. BED LOW. ALARM ON. CALL LIGHT WITHIN REACH. WILL CONTINUE TO MONITOR.
--- NOTE | 2019-08-19 01:55 | NUR ---
PATIENT USED CALL LIGHT FOR ASSIST. THIS NURSE WENT TO PATIENT'S ROOM. PATIENT TRANSFERRED INTO WHEELCHAIR WITH MINIMAL ASSIST. PATIENT HAD VOID & BM. PATIENT WIPED SELF. PULLED UP BRIEF. RETURNED TO BED. BED LOW. ALARM ON. CALL LGITH WITHIN REACH. WILL CONTINUE TO MONITOR.
--- NOTE | 2019-08-19 03:36 | NUR ---
I have reviewed this patient and I concur with the Shift Assessment completed by the Licensed Practical Nurse today this shift.
--- NOTE | 2019-08-19 04:56 | NUR ---
PATIENT AWAKE. BED LOW. ALARM ON. CALL LIGHT WITHIN REACH. WILL CONTINUE TO MONITOR.
[2019-08-19 08:00] LABS: BASOPHILS 0.1 % (0-2); EOSINOPHILS 1.1 % (0-7); HEMATOCRIT 26.5 % (36.0-48.0); HEMOGLOBIN 8.5 g/dL (12-16); IMMATURE GRANULOCYTES 3.3 % (0-5); LYMPHOCYTES 11.6 % (15-50); MCH 30.5 pg (26.0-34.0); MCHC 32.1 g/dL (31.0-37.0); MEAN PLATELET VOLUME 10.6 fL (7.4-10.4); MONOCYTES 10.7 % (2-11); NEUTROPHILS 73.2 % (40-80); RBC 2.79 10x6/uL (4.00-5.40); RDW 12.9 % (11.5-14.5); WBC 9.3 10x3/uL (4.8-10.8)
[2019-08-19 08:05] LABS: ANION GAP 12.2 mmol/L (8-16); CALCIUM 8.3 mg/dL (8.5-10.1); CARBON DIOXIDE 25.8 mmol/L (21.0-32.0)
[2019-08-19 08:06] LABS: PLATELET COUNT 291 10x3/uL (130-400)
[2019-08-19 08:21] VITALS: BP 105/59
--- NOTE | 2019-08-19 13:18 | NUR ---
NUTRITION FOLLOW UP INTERVIEW: Met with patient this morning. She stated her appetite has been pretty good. She denied N/V/D/C. She stated she has missing teeth, but does not have any issues chewing her food. Patient enjoys drinking Ensure. DIET: Regular Diet- Ensure TID PO INTAKE: No po intake recorded at this time WT: 90 lbs (08/17) BM: x 1 (08/19) SIG MEDS: Mag Ox, Lipitor, Lopressor SIG LABS: Chloride-111(H), BUN-27(H), [id number](H) GOALS: PO intake >/= 75%, BM q 3 days, Stable weight DHS Clinical dietitian to continue following and monitoring patient DHS.
--- NOTE | 2019-08-19 15:31 | NUR ---
PATIENT ADMITTED TO REHAB FROM [facility]. DISCHARGE PLANS ARE FOR PATIENT TO RETURN HOME WITH HER FAMILY. SHE HAS NO DME AT HOME AT THIS TIME. WILL CONTINUE TO FOLLOW WITH PATIENT.
[2019-08-19 20:00] VITALS: BP 114/51
--- NOTE | 2019-08-20 01:44 | NUR ---
I have reviewed this patient and I concur with the Shift Assessment completed by the Licensed Practical Nurse today this shift.
--- NOTE | 2019-08-20 06:15 | NUR ---
PATIENT PLACED ON BED MC[place]H. VOID ONLY. BED LOW. ALARM ON. CALL LIGHT WITHIN REACH.
--- NOTE | 2019-08-20 06:17 | NUR ---
PATIENT AWAKE. DAUGHTER IN ROOM. PATIENT HAD 2 VOIDS. ONE BM. BED LOW. CALL LIGHT WITHIN REACH. WILL CONTINUE TO MONITOR.
[2019-08-20 08:23] VITALS: BP 141/66
--- NOTE | 2019-08-20 18:01 | NUR ---
SITTING UP EATING SUPPER. DENIES NEEDS. CALL LIGHT IN REACH
--- NOTE | 2019-08-20 19:15 | NUR ---
ASSISTED TO AND FROM BATHROOM. PT BACK IN BED. CL IN REACH. DENIES NEEDS OR PAIN AT THIS TIME. BED IN LOW SIDE RAILS X2. BED ALARM ON. PT CONFUSED AT TIMES. APHASIA NOTED. TELEMETRY ON. RIGHT ARM IS WEAK FROM CVA. RESP EVEN AND UNLABORED. LUNGS CLEAR.BOWEL ACTIVE X4. WILL CONTINUE TO MONITOR.
[2019-08-20 20:44] VITALS: BP 112/64
--- NOTE | 2019-08-21 00:15 | NUR ---
I have reviewed this patient and I concur with the Shift Assessment completed by the Licensed Practical Nurse today this shift.
[2019-08-21 07:38] VITALS: BP 108/61
--- NOTE | 2019-08-21 13:02 | NUR ---
SITTING UP IN BED EATING LUNCH. DENIES NEEDS OR C/O. STILL CONFUSED. CALL LIGHT IN REACH
--- NOTE | 2019-08-21 16:51 | NUR ---
RESTING QUIETLY IN BED, EYES CLOSED. NO S/S DISTRESS. CALL LIGHT IN REACH
--- NOTE | 2019-08-21 18:07 | NUR ---
SITTING UP IN BED TALKING WITH DAUGHTER. DENIES NEEDS OR C/O. STILL WEARING TELEMETRY. CALL LIGHT IN REACH
--- NOTE | 2019-08-21 19:22 | NUR ---
PT SITTING UP IN BED WATCHING TV. CL IN REACH. DAUGHTER IN ROOM. BED IN LOW SIDE RAILS X2. RESP EVEN AND UNLABORED. LUNGS CLEAR. BOWEL ACTIVE X4. PT DENIES NEEDS OR PAIN AT THIS TIME. RIGHT SIDE WEAKNESS DUE TO CVA. TELEMETRY ON. WILL CONTINUE TO MONITOR.
[2019-08-21 20:04] VITALS: BP 116/68
--- NOTE | 2019-08-21 22:39 | NUR ---
PT LYING IN BED DAUGHTER IN ROOM. DENIES NEEDS AT THIS TIME. WCTM CL IN REACH
--- NOTE | 2019-08-22 01:24 | NUR ---
I have reviewed this patient and I concur with the Shift Assessment completed by the Licensed Practical Nurse today this shift.
--- NOTE | 2019-08-22 02:05 | NUR ---
pt resting quietly. cl in reach. no distress noted. daughter in room. wctm
--- NOTE | 2019-08-22 05:41 | NUR ---
PT RESTING QUIETLY. CL IN REACH. NO DISTRESS NOTED.WCTM
[2019-08-22 05:59] LABS: BASOPHILS 0.2 % (0-2); EOSINOPHILS 0.9 % (0-7); HEMATOCRIT 30.6 % (36.0-48.0); HEMOGLOBIN 9.6 g/dL (12-16); IMMATURE GRANULOCYTES 2.1 % (0-5); LYMPHOCYTES 7.7 % (15-50); MCH 29.9 pg (26.0-34.0); MCHC 31.4 g/dL (31.0-37.0); MCV 95.3 fL (80.0-100.0); MEAN PLATELET VOLUME 10.5 fL (7.4-10.4); MONOCYTES 8.2 % (2-11); NEUTROPHILS 80.9 % (40-80); PLATELET COUNT 322 10x3/uL (130-400); RBC 3.21 10x6/uL (4.00-5.40); RDW 13.3 % (11.5-14.5); WBC 10.8 10x3/uL (4.8-10.8)
[2019-08-22 06:13] LABS: ANION GAP 11.9 mmol/L (8-16); CALCIUM 8.2 mg/dL (8.5-10.1); CARBON DIOXIDE 25.1 mmol/L (21.0-32.0); CREATININE - SERUM 0.9 mg/dL (0.6-1.3)
[2019-08-22 07:58] VITALS: BP 136/63
--- NOTE | 2019-08-22 11:00 | NUR ---
IN THERAPY. DTR SPENT THE NIGHT.
--- NOTE | 2019-08-22 13:21 | RHP ---
PATIENT: NAKIA WALL MEDICAL RECORD: [id number] ACCOUNT: [id number] [facility] [id number] : [birth year] ADMISSION DATE: 08/16/19 REHABILITATION HISTORY AND PHYSICAL EXAMINATION POST ADMISSION PHYSICIAN EXAMINATION ADMITTING DIAGNOSIS: Cerebrovascular accident. HISTORY OF PRESENT ILLNESS: The patient is an 84-year-old female patient who has got a history of lupus, rheumatoid arthritis, hypertension and non-ST segment elevation NE. She was transferred to [facility] from [facility] secondary to a productive cough, shortness of breath, elevation of her troponin and while being worked up for her non-ST segment NE. The patient was noted to have a CTA of the head and neck, which showed a middle cerebral artery occlusion. She was given TPA. She was transferred to [facility] for possible thrombectomy. 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 The patient is thought to have also a small meningioma, occlusion of the left M1 bifurcation there, hyperdensity in the pericardium concerning for hemopericardium, atelectasis of left lung base with hyperdensity adjusting to the pleural space concerning for hemothorax. The patient had a CTP with no core infarct with 107 cc of volume ischemia. Thrombectomy was attempted, but was unsuccessful. The patient stopped taking some of her medications including her blood pressure medicines on her own. She is now alert and oriented with periods of confusion. Her hospital course was complicated by URI. Echo shows a 55% to 60% ejection fraction with moderate pericardial effusion. She has got chronic lupus. The patient will be followed up by cardiology as an outpatient. She will wear an event monitor when she leaves here for 30 days. She did pass her swallow eval and tolerated a regular diet. She has participated with therapy and has ambulated 5 steps walking around the bed to the recliner. She is requiring some verbal and tactile cues to maintain gill box operator of her right hand on the walker. She performs ADLs with supervision and min assist. Prior to her hospitalization, she was living at home alone. She does have 6 steps to enter her residence. She was independent with ambulation and ADLs. Her has Parkinson's disease and is currently actually in a detention facility. COMORBIDITIES: Include lupus, gastroesophageal reflux disease, hypertension, non-ST segment elevation myocardial infarction, rheumatoid arthritis and anxiety. PAST MEDICAL HISTORY: Significant for lupus, anxiety, pericardial effusion, peptic ulcer disease, bronchiectasis, gastroesophageal reflux disease, hypertension and a past non-ST segment elevation myocardial infarction. PAST SURGICAL HISTORY: Includes a thrombectomy. ALLERGIES: SULFA AND CODEINE. CURRENT MEDICATIONS: Include Cayla 60 mg b.i.d., Mag-Ox 400 mg daily, Plaquenil 400 mg daily, atorvastatin 40 mg daily, aspirin chewable 81 mg daily, she is on Macrobid for UTI, Tylenol 500 mg every 4 hours p.r.n., clonidine 0.1 mg b.i.d., BuSpar 30 mg b.i.d., metoprolol 25 mg b.i.d., melatonin 3 mg at bedtime, MiraLax 17 grams in 8 ounces of water daily. HISTORY AND PHYSICAL [id number] NAKIA WALL HABITS: No alcohol or tobacco use. FAMILY HISTORY: Noncontributory. SOCIAL HISTORY: The patient hopes to return back home, will require some social worker masters to figure out how to get her home with her with Parkinson's. REVIEW OF SYSTEMS: GENERAL: Does complain of some weakness and fatigue. HEENT: Denies cold, cough, or congestion. CARDIOVASCULAR: Denies chest pain. PHYSICAL EXAMINATION: VITAL SIGNS: Stable, afebrile. GENERAL: A very elderly cachectic female in no acute distress, alert upon exam. HEENT: Normocephalic and atraumatic. Mucosa moist. NECK: Supple. No lymphadenopathy. LUNGS: Clear in upper resendiz with decreased breath sounds in the bases. HEART: Regular rate and rhythm. She does have distal heart sounds. ABDOMEN: Soft, benign, and nondistended. Positive bowel sounds times 4. EXTREMITIES: No clubbing, cyanosis or edema. NEUROLOGIC: She is a little bit slow to mentate. She does have noted proximal muscle decrease in both of her thighs. LABORATORY DATA: White count is 9000, H&H of 8.9 and 26.9 and platelet count is 204. Her sodium and chem-7 are pending at this time. ASSESSMENT: This is an 84-year-old female patient admitted to rehab with a working diagnosis of cerebrovascular accident. The patient has potential to make improvement. We instituted the following multidisciplinary therapies, including, but not limited to physical, occupational, respiratory, speech, nutritional services, prosthetics and orthotics. Given her complex medical condition and risks for more complications, rehabilitation services cannot be provided at a low level of care such as detention facility. PLAN: 1. Admit to [facility] for intensive inpatient therapy to include the following disciplines; A. Physical therapy to improve gait, all transfer skills and bed mobility to a modified independent level. B. Occupational therapy to a modified independent level. C. Case management to assist with discharge planning and placement options. D. Nutrition to assist with nutritional needs. E. Rehabilitation nursing to assist in monitoring the patient's underlying medical conditions and to assist with any type of bowel or bladder management. 2. The patient's current medication and medical care will be continued. 3. The patient will be placed on standard fall precautions. 4. The patient's estimated length of stay is approximately 7-10 days. 5. We will discuss the patient's care team staff meeting today. We will have her work with PT, OT and speech therapy throughout her stay and we will follow up again in the a.m. TRANSINT:[id number] Voice Confirmation ID: [id number] DOCUMENT ID: [id number] HISTORY AND PHYSICAL [id number] NAKIA WALL notes whether there has been none or any medical/functional change since admission: - No change since pre-admission screen. ASHLEY attests patient continues to be appropriate for IRF: - Continues to be appropriate. RAFAELA SHEETS MD at 1321 CC: [id number] DICTATION DATE: 08/17/19913 WHEAT CLEANER: 08/17/19 [address] [facility] [address] [place] [id number]
--- NOTE | 2019-08-22 19:30 | NUR ---
BEDSIDE REPORT COMPLETE. PT RECEIVED SITTING UP IN BED VISITING WITH FAMILY. DENIES ANY NEEDS OR PAIN. NO SIGNS OF ACUTE DISTRESS NOTED. VS STABLE. SHIFT ASSESSMENT COMPLETE. CL IN REACH. FALL PRECAUTIONS IN PLACE. WILL CONTINUE TO MONITOR
[2019-08-22 19:54] VITALS: BP 138/74
--- NOTE | 2019-08-23 02:11 | NUR ---
PT LYING IN BED ON RIGHT SIDE EYES CLOSED RESTING COMFORTABLY. RR EVEN AND UNLABORED. CL IN REACH
--- NOTE | 2019-08-23 04:25 | NUR ---
PT LYING IN BED EYES CLOSED RESTING. DAUGHTER AT BEDSIDE. CL IN REACH.
[2019-08-23 08:43] VITALS: BP 143/68
--- NOTE | 2019-08-23 19:17 | NUR ---
PT SITTING UP IN BED WATCHING TV. DAUGTHER AT BEDSIDE. CL IN REACH. PT DENIES NEEDS OR PAIN AT THIS TIME. BED IN LOW SIDE RAILS X2. A/O X4. RIGHT SIDE WEAKNESS FROM CVA. LUNGS CLEAR. BOWEL ACTIVE X4. RESP EVEN AND UNLABORED. WILL CONTINUE TO MONITOR.
[2019-08-23 21:15] VITALS: BP 154/82
--- NOTE | 2019-08-24 01:02 | NUR ---
I have reviewed this patient and I concur with the Shift Assessment completed by the Licensed Practical Nurse today this shift.
--- NOTE | 2019-08-24 02:05 | NUR ---
PT RESTING QUIETLY. CL IN REACH. EYES CLOSED. DAUGHTER IN ROOM. NO DISTRESS NOTED. WCTM
--- NOTE | 2019-08-24 06:01 | NUR ---
PT RESTING QUIETLY. CL IN REACH. NO DISTRESS NOTED. EYES CLOSED. WCTM
[2019-08-24 08:00] VITALS: BP 136/65
[2019-08-24 08:48] LABS: ANION GAP 12.4 mmol/L (8-16); CARBON DIOXIDE 22.6 mmol/L (21.0-32.0); CREATININE - SERUM 0.8 mg/dL (0.6-1.3)
[2019-08-24 08:57] LABS: BASOPHILS 0.3 % (0-2); EOSINOPHILS 1.1 % (0-7); HEMATOCRIT 34.3 % (36.0-48.0); HEMOGLOBIN 11.1 g/dL (12-16); IMMATURE GRANULOCYTES 1.5 % (0-5); LYMPHOCYTES 9.6 % (15-50); MCH 30.5 pg (26.0-34.0); MCHC 32.4 g/dL (31.0-37.0); MCV 94.2 fL (80.0-100.0); MEAN PLATELET VOLUME 10.5 fL (7.4-10.4); MONOCYTES 11.6 % (2-11); NEUTROPHILS 75.9 % (40-80); PLATELET COUNT 270 10x3/uL (130-400); RBC 3.64 10x6/uL (4.00-5.40); RDW 13.5 % (11.5-14.5); WBC 11.8 10x3/uL (4.8-10.8)
[2019-08-24 08:59] LABS: CALCIUM 8.5 mg/dL (8.5-10.1)
--- NOTE | 2019-08-24 14:00 | NUR ---
CARE TEAM MEETING: PATIENTS TENATIVE DISCHARGE DATE IS 08/31/2019. WILL CONTINUE TO FOLLOW WITH PATIENT.
--- NOTE | 2019-08-24 14:53 | NUR ---
Nutrition Follow-up: Diet: Regular + Ensure with meals PO intake: ~36% average x last 9 meals. Reports a good appetite. States that she is drinking most of the Ensure. Last BM: 08/21/19. WT: 90# (08/17/19)-- no new wt Meds and labs reviewed. Continue current diet and oral nutrition supplement. Encouraged PO intake. RD following.
--- NOTE | 2019-08-24 16:00 | NUR ---
WILL CONTINUE TO MONITOR
--- NOTE | 2019-08-24 19:17 | NUR ---
PT SITTING UP IN BED WATCHING TV. CL IN REACH. BED ALARM ON. PT A/O X4, CONFUSED AT TIMES. RIGHT SIDE WEAKNESS FROM CVA. PT DENIES NEEDS OR PAIN AT THIS TIMES. LUNGS CLEAR. BOWEL ACTIVE X4. RESP EVEN AND UNLABORED. WILL CONTINUE TO MONITOR.
[2019-08-24 20:54] VITALS: BP 144/73
--- NOTE | 2019-08-24 22:47 | NUR ---
I have reviewed this patient and I concur with the Shift Assessment completed by the Licensed Practical Nurse today this shift.
--- NOTE | 2019-08-25 03:30 | NUR ---
ALARM WAS SOUNDING PT WAS UP ON SIDE OF BED NEEDING TO USE BATHROOM. ASSISTED PT TO AND FROM BATHROOM. PT HAD BM. CL IN REACH. WCTM
--- NOTE | 2019-08-25 11:08 | NUR ---
SITTING UP IN BED IN ROOM. DENIES NEEDS OR C/O. BED ALARM ON. CALL LIGHT IN REACH. IS CONFUSED ABOUT MEALS AND TIMES SERVED.
--- NOTE | 2019-08-25 19:17 | NUR ---
PT SITTING UP IN BED. CL IN REACH. PT DENIES NEEDS OR PAIN AT THIS TIME. BED IN LOW SIDE RAILS X2. BED ALARM ON. PT CAN BE CONFUSED AT TIMES. RIGHT SIDE WEAKNESS FROM PREVIOUS CVA. RESP EVEN AND UNLABORED. LUNGS CLEAR. BOWEL ACTIVE X4. A/O X4 AT THIS TIME. WILL CONTINUE TO MONITOR.
[2019-08-25 19:45] VITALS: BP 164/85
--- NOTE | 2019-08-26 00:48 | NUR ---
SOON CAME TO VISIT PT. SON AT BEDSIDE.
--- NOTE | 2019-08-26 01:01 | NUR ---
I have reviewed this patient and I concur with the Shift Assessment completed by the Licensed Practical Nurse today this shift.
[2019-08-26 07:30] VITALS: BP 140/58
[2019-08-26 08:00] VITALS: BP 156/71
[2019-08-26 08:39] LABS: BASOPHILS 0.3 % (0-2); EOSINOPHILS 1.1 % (0-7); HEMATOCRIT 36.8 % (36.0-48.0); HEMOGLOBIN 11.7 g/dL (12-16); IMMATURE GRANULOCYTES 0.8 % (0-5); LYMPHOCYTES 14.1 % (15-50); MCH 30.2 pg (26.0-34.0); MCHC 31.8 g/dL (31.0-37.0); MCV 95.1 fL (80.0-100.0); MEAN PLATELET VOLUME 10.5 fL (7.4-10.4); MONOCYTES 12.1 % (2-11); NEUTROPHILS 71.6 % (40-80); PLATELET COUNT 274 10x3/uL (130-400); RBC 3.87 10x6/uL (4.00-5.40); RDW 13.5 % (11.5-14.5); WBC 9.3 10x3/uL (4.8-10.8)
[2019-08-26 08:40] LABS: ANION GAP 13.3 mmol/L (8-16); CALCIUM 8.5 mg/dL (8.5-10.1); CARBON DIOXIDE 23.4 mmol/L (21.0-32.0); CREATININE - SERUM 0.8 mg/dL (0.6-1.3); POTASSIUM - SERUM 3.7 mmol/L (3.5-5.1)
--- NOTE | 2019-08-26 12:36 | NUR ---
SITTING UP IN BED FOR LUNCH. DENIES NEEDS OR C/O. RUE IS WEAKER THAN LEFT. CALL LIGHT IN REACH
[2019-08-26 19:30] VITALS: BP 140/58
--- NOTE | 2019-08-26 21:17 | NUR ---
PT IS RESTING IN BED WITH EYES OPEN. ALERT AND ORIENTED X 3. VOICED COMPLAINT OF TOOTHACHE WITH A PAIN LEVEL OF 7. MEDICATED PER MAR. SOME RIGHT SIDED WEAKNESS NOTED. TELEMETRY UNIT IS ON AND INTACT. VSS. DAUGHTER IS IN ROOM AT BEDSIDE. SR'S ARE UP X 2 IN BED. CALL LIGHT AND BEDSIDE TABLE ARE WITHIN EASY REACH.
--- NOTE | 2019-08-26 23:12 | NUR ---
PT RESTING IN BED WATCHING TV AND EATING CHIPS. NO NEEDS VOICED.
--- NOTE | 2019-08-27 00:52 | NUR ---
I have reviewed this patient and I concur with the Shift Assessment completed by the Licensed Practical Nurse today this shift.
--- NOTE | 2019-08-27 04:24 | NUR ---
PT RESTING QUIETLY IN BED WITH EYES CLOSED.
[2019-08-27 08:00] VITALS: BP 145/64
--- NOTE | 2019-08-27 19:35 | NUR ---
PT RESTING IN BED CRYING, WANTING TO SPEAK TO HER SON. I ATTEMPTED TO CALL HIM SEVERAL TIMES, BUT THE CALL WENT TO VOICE MAIL. MESSAGE LEFT FOR HIM TO CALL HER ROOM PHONE RENEA.
--- NOTE | 2019-08-27 20:15 | NUR ---
PT IS SITTING ON THE SIDE OF HER BED TALKING ON THE TELEPHONE WITH A FAMILY MEMBER. ALERT AND ORIENTED X 3. DENIES ACUTE PAIN OR DISCOMFORT AT THIS TIME. TELEMETRY UNIT IS ON AND INTACT. SR'S ARE UP X 2 IN BED. CALL LIGHT AND BEDSIDE TABLE ARE WITHIN EASY REACH.
--- NOTE | 2019-08-27 22:54 | NUR ---
PT IS RESTING QUIETLY IN BED WITH EYES CLOSED. RESPS ARE EVEN AND UNLABORED. NO ACUTE DISTRESS NOTED.
--- NOTE | 2019-08-28 00:46 | NUR ---
I have reviewed this patient and I concur with the Shift Assessment completed by the Licensed Practical Nurse today this shift.
--- NOTE | 2019-08-28 04:17 | NUR ---
RESTING IN BED WITH EYES CLOSED.
--- NOTE | 2019-08-28 08:00 | NUR ---
SHIFT ASSMT COMPLETED.BREAKFAST GIVEN.
[2019-08-28 08:15] VITALS: BP 155/79
--- NOTE | 2019-08-28 15:28 | NUR ---
RESTING QUIETLY.CL IN REACH.DAUGHTER HAS LEFT.WILL CONTINUE TO MONITOR.
--- NOTE | 2019-08-28 20:02 | NUR ---
PT IS RESTING IN BED WITH EYES OPEN. ALERT AND ORIENTED X 3. DENIES ACUTE PAIN OR DISCOMFORT VOICED. NO NEEDS VOICED. TELEMETRY UNIT IS ON AND INTACT. VSS. SR'S ARE UP X 2 IN BED. CALL LIGHT AND BEDSIDE TABLE ARE WITHIN EASY REACH.
--- NOTE | 2019-08-28 22:43 | NUR ---
PT SITTING IN BED VISITING WITH FAMILY MEMBERS. NO NEEDS VOICED.
--- NOTE | 2019-08-29 00:01 | NUR ---
I have reviewed this patient and I concur with the Shift Assessment completed by the Licensed Practical Nurse today this shift.
--- NOTE | 2019-08-29 04:59 | NUR ---
PT RESTING IN BED WITH EYES CLOSED. NO ACUTE DISTRESS NOTED.
[2019-08-29 06:40] LABS: BASOPHILS 0.3 % (0-2); EOSINOPHILS 1.1 % (0-7); HEMOGLOBIN 10.5 g/dL (12-16); IMMATURE GRANULOCYTES 0.5 % (0-5); MCH 29.8 pg (26.0-34.0); MCHC 31.8 g/dL (31.0-37.0); MCV 93.8 fL (80.0-100.0); MEAN PLATELET VOLUME 10.3 fL (7.4-10.4); MONOCYTES 17.3 % (2-11); NEUTROPHILS 66.8 % (40-80); PLATELET COUNT 266 10x3/uL (130-400); RBC 3.52 10x6/uL (4.00-5.40); RDW 13.6 % (11.5-14.5); WBC 6.5 10x3/uL (4.8-10.8)
[2019-08-29 06:57] LABS: ANION GAP 15.6 mmol/L (8-16); CARBON DIOXIDE 20.6 mmol/L (21.0-32.0); CREATININE - SERUM 0.9 mg/dL (0.6-1.3); POTASSIUM - SERUM 4.2 mmol/L (3.5-5.1)
[2019-08-29 08:00] VITALS: BP 123/69
--- NOTE | 2019-08-29 12:34 | NUR ---
SITTING UP IN BED EATING LUNCH. STILL WEARING TELEMETRY. STILL CONFUSED. RUE WEAKER THAN LEFT SIDE. WALKS WITH SLOW GAIT. BED ALARM IN PLACE. CALL LIGHT IN REACH
--- NOTE | 2019-08-29 19:17 | NUR ---
PT SITTING UP IN BED. CL IN REACH. DENIES NEEDS OR PAIN AT THIS TIME. BED IN LOW SIDE RAILS X2. RESP EVEN AND UNLABORED. A/O X3. CONFUSED AT TIMES. RIGHT SIDE WEAK FROM PREVIOUS CVA. LUNGS CLEAR. BOWEL ACTIVE X4. WILL CONTINUE TO MONITOR.
[2019-08-29 21:10] VITALS: BP 160/70
--- NOTE | 2019-08-30 01:30 | NUR ---
PT RESTING QUIETLY. CL IN REACH. NO DISTRESS NOTED. EYES CLOSED. WCTM
--- NOTE | 2019-08-30 01:36 | NUR ---
I have reviewed this patient and I concur with the Shift Assessment completed by the Licensed Practical Nurse today this shift.
--- NOTE | 2019-08-30 05:15 | NUR ---
WITNESSED PT WALK TO AND FROM BATHROOM WITH NO ASSISTANCE. PT DID VERY WELL. PT HAD BM THIS AM AND IS BACK IN BED. CL IN REACH. BED ALARM ON. WCTM
[2019-08-30 08:00] VITALS: BP 150/61
--- NOTE | 2019-08-30 08:40 | NUR ---
SITTING UP IN BED EATING BREAKFAST. DENIES NEEDS OR C/O. IS STILL CONFUSED. CALL LIGHT IN REACH. BED IN LOWEST POSITION.
--- NOTE | 2019-08-30 10:56 | NUR ---
SITTING UP IN BED, EYES CLOSED. APPEARS TO BE NAPPING. CALL LIGHT IN REACH. SIDE RAILS UP X2. BED IN LOWEST POSITION
--- NOTE | 2019-08-30 13:34 | NUR ---
Nutrition Follow-up: Diet: Regular + Chocolate Ensure with meals PO intake: 50%-15% x last 2 meals recorded; patient reports good appetite. Reports that she has been eating well. Reports that she is drinking Ensure. Last BM: 08/30/19. WT: 90# (08/17/19), no new wt Labs and meds reviewed. Recommend continue current diet and oral nutrition supplements. Recommend getting new wt on patient. RD following.
--- NOTE | 2019-08-30 14:48 | NUR ---
LAYING IN BED EYES CLOSED. STILL HAS WAIST PRESSER ON. CALL LIGHT IN HER LAP. SIDE RAILS UP X2.
--- NOTE | 2019-08-30 19:23 | NUR ---
PT SITTING UP IN BED. CL IN REACH. DENIES NEEDS OR PAIN AT THIS TIME. BED IN LOW SIDE RAILS X2. A/O X3 CONFUSED AT TIMES. LUNGS CLEAR. BOWEL ACTIVE X4. RESP EVEN AND UNLABORED. TELEMETRY ON. RIGHT ARM WEAK. WILL CONTINUE TO MONITOR.
[2019-08-30 20:38] VITALS: BP 154/47
--- NOTE | 2019-08-31 01:00 | NUR ---
PT RESTING QUIETLY. CL IN REACH. NO DISTRESS NOTED. WCTM
--- NOTE | 2019-08-31 02:16 | NUR ---
I have reviewed this patient and I concur with the Shift Assessment completed by the Licensed Practical Nurse today this shift.
--- NOTE | 2019-08-31 05:30 | NUR ---
PT RESTING QUIETLY. CL IN REACH. NO DISTRESS NOTED. WCTM
[2019-08-31 08:00] VITALS: BP 144/67
--- NOTE | 2019-08-31 14:22 | NUR ---
PATIENT DISCHARGING HOME TODAY WITH FAMILY. [facility] WILL PROVIDE THERAPY AT HOME. NO COMPARE DATA USED SHE HAS USED [facility]FORE. PATIENT CHOICE FORM FOR HOME HEALTH SIGNED, ONE GIVEN TO PATIENT AND ONE FILED IN CHART. [facility] FORM SIGNED, ONE GIVEN TO PATIENT AND ONE FILED IN CHART. NO NEW DME NEEDED AT THIS TIME. DR. ELLIS 09/06/2019 @ 12:00, DR. PAGAN 11/11/2019 @ 11:00. FORM SIGNED TO RELEASE EVENT MONITOR. DISCHARGE INSTRUCTIONS FAXED TO PCP, HOME HEALTH AND REVIEWED WITH PATIENT AND SON.
== END 2019-08-31 15:15 | disposition home health service (06) | DRG 56 ==
LOC: D.REHAB 13:17
PROVIDERS: ADMIT Emergency Medicine; ATTEND Emergency Medicine
DX: I69.30 Unspecified sequelae of cerebral infarction (principal); I21.4 Non-ST elevation (NSTEMI) myocardial infarction; M32.9 Systemic lupus erythematosus, unspecified; K21.9 Gastro-esophageal reflux disease without esophagitis; I10 Essential (primary) hypertension; M06.9 Rheumatoid arthritis, unspecified; F41.9 Anxiety disorder, unspecified

== ENCOUNTER 2020-02-10 23:52 | Inpatient (IN) | payer MEDICARE ==
[~2020-02-10] VITALS: Ht 144.8 cm; Wt 36.3 kg
--- NOTE | ~2020-02-10 | OP ---
PATIENT NAME: NAKIA WALL MEDICAL RECORD: [id number] :33 LOCATION:D.M2 D.2123 ADMISSION DATE:02/11/20 SURGEON: JACQUI ARCE MD DATE OF OPERATION: 02/23/2020 PREOPERATIVE DIAGNOSES: 1. Need for IV access. 2. Cerebrovascular accident. 3. Acute myocardial infarction. 4. Chronic obstructive pulmonary disease. POSTOPERATIVE DIAGNOSES: 1. Need for IV access. 2. Cerebrovascular accident. 3. Acute myocardial infarction 4. Chronic obstructive pulmonary disease. PROCEDURE: Right subclavian vein triple-lumen central venous line placement. SURGEON: Jacqui Arce MD REPORT OF PROCEDURE: The patient's right chest was prepped and draped in sterile fashion, 5 cc of 1% lidocaine with epinephrine was infused into the surrounding tissues. A needle was used to cannulate the right subclavian vein and a guidewire was advanced with ease. Over this wire, a dilator was placed followed by the triple lumen catheter. The catheter aspirated nonpulsatile dark blood and flushed easily in all 3 ports. This was sutured into place with 4-0 nylon and dressed appropriately. COMPLICATIONS: None. CONDITION: Stable. ANESTHESIA: Local. BLOOD LOSS: Minimal. Procedure done at the bedside. TRANSINT:[id number] Voice Confirmation ID: [id number] DOCUMENT ID: [id number] JACQUI ARCE MD CC: [id number] DICTATION DATE: 02/23/20 153 TICKET DISPATCHER: 02/23/202107 ADM IN [facility] [address] [place] [address]
[~2020-02-10 23:52] MED LIST changes: +BAYER CHEWABLE81 MG PO; +LIPITOR40 MG PO; +LOPRESSOR25 MG PO; +MACROBID100 MG PO; +MELATONIN 3 MG1 TAB PO
[2020-02-11] VITALS (8 sets, daily range): BP systolic 109–179; BP diastolic 63–98; Ht 144.8 cm; Wt 36.3 kg
--- NOTE | 2020-02-11 00:01 | NUR ---
STRAIGHT CATH COLLECTED AT THIS TIME, PT TOLERATED WELL. PT INCONTINENT OF SMALL BM. PERINEAL CARE AND LINEN CHANGE AT THIS TIME. PT REPOSITIONED IN BED.
[2020-02-11 00:30] LABS: HEMATOCRIT 44.2 % (36.0-48.0); HEMOGLOBIN 14.9 g/dL (12-16); LYMPHOCYTES 6.8 % (15-50); MCH 32.2 pg (26.0-34.0); MCHC 33.7 g/dL (31.0-37.0); MCV 95.5 fL (80.0-100.0); MEAN PLATELET VOLUME 11.6 fL (7.4-10.4); NEUTROPHILS 82.2 % (40-80); PLATELET COUNT 142 10x3/uL (130-400); RBC 4.63 10x6/uL (4.00-5.40); WBC 14.8 10x3/uL (4.8-10.8)
[2020-02-11 01:30] LABS: ANION GAP 14.8 mmol/L (8-16); CALCIUM 9.3 mg/dL (8.5-10.1); CARBON DIOXIDE 22.9 mmol/L (21.0-32.0); CREATININE - SERUM 1.2 mg/dL (0.6-1.3); POTASSIUM - SERUM 3.7 mmol/L (3.5-5.1)
[2020-02-11 01:52] LABS: ALBUMIN 3.4 g/dL (3.4-5.0); BILIRUBIN - TOTAL 0.95 mg/dL (0.2-1.3); PROTEIN - SERUM 7.2 g/dL (6.4-8.2)
[2020-02-11 01:53] LABS: TROPONIN-I 0.183 ng/mL (0.000-0.060)
[2020-02-11 02:20] LABS: BILIRUBIN NEGATIVE (NEGATIVE); GLUCOSE NEGATIVE (NEGATIVE); KETONE NEGATIVE (NEGATIVE); NITRITE NEGATIVE (NEGATIVE); UROBILINOGEN NORMAL (NORMAL)
[2020-02-11] MEDS ORDERED: MEGACE 20 MG TA20 MG PO (02:23)
[2020-02-11] MEDS ORDERED: GEODON20 MG PO ×2 (02:24)
--- NOTE | 2020-02-11 02:32 | NUR ---
PT INCONTINENT OF URINE, PERINEAL CARE PROVIDED AND LINEN CHANGED. RESPIRATIONS EVEN AND NON LABORED. NO SIGNS OF DISTRESS. PT DENIES NEEDS.
[2020-02-11 03:02] LABS: MAGNESIUM - SERUM 2.5 mg/dL (1.8-2.4); THYROID STIMULATING HORMONE 0.47 uIU/mL (0.36-3.74)
--- NOTE | 2020-02-11 04:40 | NUR ---
PT INCONTINENT OF URINE. PERINEAL CARE PROVIDED AT THIS TIME WELL LINEN CHANGE. PT REPOSITION AND STATES THAT SHE IS COMFORTABLE. CALL LIGHT IN REACH AND DAUGHTER AT BEDSIDE. WILL CONTINUE TO MONITOR.
[2020-02-11 06:18] LABS: CKMB 6.9 U/L (0.0-3.6); CREATINE KINASE 127 UL (21-215)
[2020-02-11 06:22] LABS: TROPONIN-I 0.263 ng/mL (0.000-0.060)
[2020-02-11 12:00] LABS: CKMB 8.2 U/L (0.0-3.6); CREATINE KINASE 137 UL (21-215)
[2020-02-11 12:06] LABS: TROPONIN-I 0.358 ng/mL (0.000-0.060)
--- NOTE | 2020-02-11 16:00 | NUR ---
PT HAD THREE LARGE PELLET LIKE BOWEL MOVEMENTS THAT WERE HARD. CLEANED PT, APPLIED NEW LINEN. WILL CTM.
--- NOTE | 2020-02-12 00:18 | NUR ---
INITIAL ROUNDS COMPLETED AT 1910HRS. PT RESTING WITH EYES CLOSED. RESP EVEN AND REGULAR. PT INCONTINENT OF STOOL AT 2020 HRS. INCONTINENT CARE DONE. ASSESSMENT COMPLETED AT THAT TIME. VSS. SR PER CM HR 63. PT LETHARGIC, OPENS EYES TO VERBAL STIMULI THEN QUICKLY FALLS BACK TO SLEEP. IV TO R WRIST WITHNS AT 50CC/HR. IV PATENT. LUNGS DIMINISHED IN BASES BILAT. SCD'S IN USE. SCD'S REMOVED AND SKIN INSPECTED. NO BREAKDOWN NOTED. PT MORE ALERT AT 2230 HRS. PM MEDS GIVEN CRUSHED IN APPLESAUCE. SCD'S REMOVED BY PT. PT LESS AGITATED AFTER SCD REMOVAL. PT CURRENTLY MUMBLING TO SELF. DAUGHTER AT BEDSIDE.
--- NOTE | 2020-02-12 02:15 | NUR ---
PT INCONTINNT OF URINE. INCONTINENT CARE DONE, BED LINENS CHANGED. PT REPOSITIONED IN BED. DAUGHTER AT BEDSIDE.
--- NOTE | 2020-02-12 04:17 | NUR ---
PT INCONTINENT OF URINE. INCONTINENT CARE DONE. REPOSITIONED IN BED FOR COMFORT. SR UP X2, CALL LIGHT WITHIN REACH AND DAUGHTER AT BEDSIDE.
[2020-02-12 05:00] VITALS: BP 129/84
--- NOTE | 2020-02-12 06:41 | NUR ---
VS THROUGHOUT NIGHT. SR PER CM. PT INCONTINENT OF URINE AND STOOL NUMEROUS TIMES DURING SHIFT. NEEDS MET; WILL CONTINUE TO MONITOR.
--- NOTE | 2020-02-12 07:20 | NUR ---
RECIEVE REPORT. RESTING IN BED WITH EYES CLOSED. RESPIRATIONS NONLABORED. FAMILY AT BEDSIDE. CONTINUE PLAN OF CARE AND SAFETY PRECAUTIONS.
[2020-02-12 07:47] LABS: CALC OSMOLALITY 289 mosm/kg (275-300); CALCIUM 7.8 mg/dL (8.5-10.1); CHLORIDE - SERUM 111 mmol/L (98-107); GLUCOSE 83 mg/dL (74-106); SODIUM 143 mmol/L (136-145); UREA NITROGEN 28 mg/dL (7-18)
[2020-02-12 07:48] LABS: CARBON DIOXIDE 15.7 mmol/L (21.0-32.0); CREATININE - SERUM 0.7 mg/dL (0.6-1.3); eGFR NON AFRICAN AMERICAN 84 mL/min (90-120)
[2020-02-12 07:53] LABS: POTASSIUM - SERUM 3.4 mmol/L (3.5-5.1)
[2020-02-12 07:54] LABS: TROPONIN-I 0.193 ng/mL (0.000-0.060)
[2020-02-12 10:06] VITALS: BP 152/79
[2020-02-12 11:05] LABS: HEMATOCRIT 37.4 % (36.0-48.0); HEMOGLOBIN 12.5 g/dL (12-16); LYMPHOCYTES 8.1 % (15-50); MCH 32.4 pg (26.0-34.0); MCHC 33.4 g/dL (31.0-37.0); MCV 96.9 fL (80.0-100.0); MEAN PLATELET VOLUME 10.9 fL (7.4-10.4); NEUTROPHILS 81.6 % (40-80); RBC 3.86 10x6/uL (4.00-5.40); RDW 12.5 % (11.5-14.5)
[2020-02-12 11:06] LABS: PLATELET COUNT 205 10x3/uL (130-400); WBC 10.1 10x3/uL (4.8-10.8)
[2020-02-12 18:06] VITALS: BP 169/83
[2020-02-12 21:30] VITALS: BP 167/84
--- NOTE | 2020-02-12 23:43 | NUR ---
INITIAL ROUNDS COMPLETED AT 1915 HRS. PT INCONTINENT OF URINE AND STOOL. INCONTINENT CARE DONE, BED LINENS CHANGED. PT UNCOOPERATIVE. ASSESSMENT COMPLETED AT 1950 HRS. VSS. SR WITH OCC PVC'S PER CM HR 89. PT CONFUSED, SPEECH GARBLED AT TIMES. LUNGS DIMINISHED IN BASES BILAT. ABD SOFT WTIH ACTIVE BS NOTED. IV TO R WRIST WITH NS AT 75CC/HR. IV PATENT. NEVES. PALPABLE PERIPHERAL PULSES. PT NPO PER ORDERS. ATTEMPTED ORAL CARE WITHOUT SUCCESS. PT REFUSED TO OPEN MOUTH. PT INCONTINENT OF URINE AT 2330 HRS. INCONTINENT CARE DONE. PT CURRENTLY RESTING WITH EYEES CLOSED. RESP EVEN AND REGULAR. SR UP X3, CALL LIGHT WITHIN REACH AND BED ALARM ON.
--- NOTE | 2020-02-13 03:26 | NUR ---
PT INCONTINENT OF URINE. INCONTINENT CARE DONE. REPOSITIONED IN BED FOR COMFORT.
--- NOTE | 2020-02-13 03:55 | NUR ---
PT INCONTINENT OF URINE. INCONTINENT CARE DONE. PT REPOSITIONED IN BED FOR COMFORT.
[2020-02-13 04:29] VITALS: BP 164/80
--- NOTE | 2020-02-13 06:03 | NUR ---
VSS THROUGHOUT NIGHT. SR WITH PVC'S PER CM. PT INCONTINENT NUMEROUS TIMES DURING SHIFT. DAUGHTER AT BEDSIDE. NEEDS MET; WILL CONTINUE TO MONITOR.
[2020-02-13 06:46] LABS: HEMATOCRIT 38.5 % (36.0-48.0); HEMOGLOBIN 12.7 g/dL (12-16); MCH 31.9 pg (26.0-34.0); MCV 96.7 fL (80.0-100.0); MEAN PLATELET VOLUME 11.8 fL (7.4-10.4); PLATELET COUNT 224 10x3/uL (130-400); RBC 3.98 10x6/uL (4.00-5.40); RDW 12.3 % (11.5-14.5); WBC 12.3 10x3/uL (4.8-10.8)
[2020-02-13 07:02] LABS: ANION GAP 22.4 mmol/L (8-16); CALCIUM 8.1 mg/dL (8.5-10.1); CREATININE - SERUM 0.8 mg/dL (0.6-1.3); MAGNESIUM - SERUM 2.1 mg/dL (1.8-2.4)
--- NOTE | 2020-02-13 07:20 | NUR ---
RECIEVE REPORT. CONFUSED. DAUGHTER AT BEDSIDE. ELECTROLYTE PROTOCOL ORDERED FOR POTASSIUM 2.4. SINUS RYTHM PVCs 87 ON TELEMETRY. DENIES ANY NEEDS AT THIS TIME. CONTINUE PLAN OF CARE AND SAFETY PRECAUTIONS.
[2020-02-13 07:39] LABS: POTASSIUM - SERUM 2.4 mmol/L (3.5-5.1)
[2020-02-13 09:00] VITALS: BP 167/89
[2020-02-13 12:00] VITALS: BP 165/94
--- NOTE | 2020-02-13 12:00 | NUR ---
CONFUSED. DAUGHTER AT BEDSIDE. LINENS SOILED. LINEN CHANGE COMPLETE. CONTINUE REPLACING POTASSIUM PER ELECTROLYTE PROTOCOL. NOTIFY OF D.DIMER 2.79 AND K-2.4.
--- NOTE | 2020-02-13 14:08 | NUR ---
Rehab Note - Acute Inpatient Rehab prescreen order received. Per PT note- the patient is unable to participate in therapy- she would have to be able to participate in the required 3hrs/day of therapy for inpatient acute rehab. Not a candidate at this time for inpatient acute rehab. Thank you for this referral! Marialuisa Vann RN Clinical Liaison, [facility] Rehab
[2020-02-13 14:32] LABS: EOSINOPHILS 1 % (0-7); LYMPHOCYTES 16 % (15-50); MONOCYTES 7 % (2-11); NEUTROPHILS 76 % (40-80); PLATELET ESTIMATE NORMAL
[2020-02-13 15:00] VITALS: BP 170/90
--- NOTE | 2020-02-13 16:46 | NUR ---
ADMISSIONS CALLED REPORTING ACCIDENTAL DISCHARGE OF PATIENT BUT WAS ABLE TO GET ALL INFORMATION REENTERED EXCEPT MEDICATIONS ORDERED ON OCT. ADMISSIONS REQUEST MEDICATION BE ADDRESSED TO DOCTORS BY NURSE. EXPLAIN IT IS BUSY HERE AND SINCE THEY DELETED MEDICATIONS THEY SHOULD NOTIFY PHYSICIAN.
[2020-02-13 21:21] VITALS: BP 169/94
[2020-02-14 00:39] VITALS: BP 174/101
[2020-02-14 06:27] VITALS: BP 143/90
--- NOTE | 2020-02-14 07:20 | NUR ---
RECIEVE REPORT. RESTING IN BED WITH EYES CLOSED. SON AT BEDSIDE. NO SIGNS OF DISTRESS. CONTINUE PLAN OF CARE AND SAFETY PRECAUTIONS.
[2020-02-14 08:19] LABS: CALCIUM 8.2 mg/dL (8.5-10.1); CREATININE - SERUM 0.8 mg/dL (0.6-1.3)
[2020-02-14 08:21] LABS: ANION GAP 16.5 mmol/L (8-16); CARBON DIOXIDE 18.9 mmol/L (21.0-32.0)
[2020-02-14 08:23] LABS: HEMATOCRIT 42.7 % (36.0-48.0); HEMOGLOBIN 14.6 g/dL (12-16); LYMPHOCYTES 4.5 % (15-50); MCH 32.2 pg (26.0-34.0); MCHC 34.2 g/dL (31.0-37.0); MEAN PLATELET VOLUME 11.4 fL (7.4-10.4); NEUTROPHILS 86.6 % (40-80); PLATELET COUNT 264 10x3/uL (130-400); RBC 4.53 10x6/uL (4.00-5.40); RDW 12.4 % (11.5-14.5); WBC 15.2 10x3/uL (4.8-10.8)
[2020-02-14 08:24] LABS: MCV 94.3 fL (80.0-100.0); POTASSIUM - SERUM 2.4 mmol/L (3.5-5.1)
[2020-02-14 10:49] VITALS: BP 168/102
[2020-02-14 12:21] VITALS: BP 160/90
--- NOTE | 2020-02-14 13:23 | NUR ---
Nutrition Follow-up: Pt confused. NPO x [address] recs puree with thin liquids and possible consideration of alternative source of nutrition for adequate nutrition and hydration. Wt: 80# (02/10) Last BM: 02/13 Labs noted: K+ 2.4, Ca 8.2 Meds noted: NS @ 75, electrolyte protocol -Rec advance diet as medically feasible with consistencies per ST. -If unable to advance diet or maintain adequate PO intake, rec initiate nutrition support; RD available to assist as needed. -Monitor wt. -RD following.
[2020-02-14 16:35] VITALS: BP 118/77
--- NOTE | 2020-02-14 18:49 | NUR ---
LIN NIEVES APN. DIFFICULT TO ARROUSE. BP-95/66. INCREASE NS RATE.
--- NOTE | 2020-02-14 18:59 | NUR ---
HOLD BP MEDICATIONS IF DIASTOLIC LESS THAN 110. BOLUS 500ml NS IV PER ADRIANA NIEVES VIA TELEPHONE. HOLD GEODON PER LIZBETH.
[2020-02-14 21:29] VITALS: BP 128/76
[2020-02-15] VITALS: BP 144/90
[2020-02-15 04:00] VITALS: BP 164/97
[2020-02-15 06:00] LABS: ANION GAP 18.7 mmol/L (8-16); CALCIUM 8.1 mg/dL (8.5-10.1); CARBON DIOXIDE 15.3 mmol/L (21.0-32.0)
[2020-02-15 06:12] LABS: HEMATOCRIT 39.3 % (36.0-48.0); HEMOGLOBIN 13.3 g/dL (12-16); LYMPHOCYTES 5.7 % (15-50); MCH 32.3 pg (26.0-34.0); MCHC 33.8 g/dL (31.0-37.0); MCV 95.4 fL (80.0-100.0); MEAN PLATELET VOLUME 11.9 fL (7.4-10.4); PLATELET COUNT 226 10x3/uL (130-400); RBC 4.12 10x6/uL (4.00-5.40); RDW 12.5 % (11.5-14.5); WBC 13.6 10x3/uL (4.8-10.8)
[2020-02-15 10:10] VITALS: BP 157/91
[2020-02-15 13:45] VITALS: BP 115/73
[2020-02-15 17:28] VITALS: BP 120/74
[2020-02-15 20:00] VITALS: BP 163/82
[2020-02-16 06:36] LABS: CALCIUM 8.1 mg/dL (8.5-10.1); CREATININE - SERUM 0.8 mg/dL (0.6-1.3); POTASSIUM - SERUM 3.4 mmol/L (3.5-5.1)
[2020-02-16 06:37] LABS: CARBON DIOXIDE 19.4 mmol/L (21.0-32.0)
[2020-02-16 07:19] LABS: HEMATOCRIT 41.6 % (36.0-48.0); LYMPHOCYTES 7.6 % (15-50); MCH 32.3 pg (26.0-34.0); MCHC 33.7 g/dL (31.0-37.0); MCV 96.1 fL (80.0-100.0); NEUTROPHILS 82.1 % (40-80); PLATELET COUNT 269 10x3/uL (130-400); RBC 4.33 10x6/uL (4.00-5.40); RDW 12.8 % (11.5-14.5); WBC 10.9 10x3/uL (4.8-10.8)
--- NOTE | 2020-02-16 08:11 | NUR ---
RECEIVED AN ORDER TO DO MR BRAIN W/WO. PATIENT HAD AN MR BRAIN WO ON 02/11/20. CALLED DR SALDVIAR TO SEE IF HE WANTED US TO REPEAT IT AND HE WAS UNAWARE THAT AN MR HAD BEEN DONE. HE SAID HE DID NOT NEED ANOTHER ONE. EXAM WAS CANCELLED AND CHICHI ROJAS'S NURSE WAS NOTIFIED.
--- NOTE | 2020-02-16 08:48 | MORECARE ---
CASE MANAGEMENT DISCHARGE SUMMARY PATIENT: NAKIA WALL UNIT: [id number] ADM DATE: 02/11/20 AGE: 84 : 34 SEX: F ROOM/BED: D.2123 AUTHOR: TESSA LOO PHYSICIAN: REFERRING PHYSICIAN: JANET DIETZ MD DATE OF SERVICE: 02/16/20 Discharge Plan Patient Name: NAKIA WALL [facility] [facility] 1935 Planned Disposition: Anticipated Discharge Date: Discharge Date: Expected LOS: Initial Reviewer: [email or web address] Initial Review Date: 02/11/2020 Generated: 02/16/20 9:47 am Patient Name: NAKIA WALL Page [phone] at 0848 All edits/amendments must be made on the electronic document DICTATION DATE: 02/16/20846 CLINICAL PSYCHOLOGIST LICENSED: PERI 02/16/2047 RPT#: [id number] DC DATE: STATUS: ADM IN [facility] [address] [place] [address] END OF REPORT
--- NOTE | 2020-02-16 09:01 | MORECARE ---
CASE MANAGEMENT DISCHARGE SUMMARY PATIENT: NAKIA WALL UNIT: [id number] ADM DATE: 02/11/20 AGE: 84 : 34 SEX: F ROOM/BED: D.9183 AUTHOR: TESSA LOO PHYSICIAN: REFERRING PHYSICIAN: JANET DIETZ MD DATE OF SERVICE: 02/16/20 Discharge Plan Patient Name: NAKIA WALL [facility] : 1935 Planned Disposition: Anticipated Discharge Date: Discharge Date: Expected LOS: Initial Reviewer: [email or web address] Initial Review Date: 02/11/2020 Generated: 02/16/20 10:00 am External Providers External Provider: OTHER-OTHER Next Contact Date: Service Request Date: Service Type: Resolution: Reviewer: Comments: Last DP export: 02/16/20 7:48 a Patient Name: NAKIA WALL Page [phone] at 0901 All edits/amendments must be made on the electronic document DICTATION DATE: 02/16/20899 PROGRAM ARRANGER: PERI 02/16/20899 RPT#: [id number] [place] DATE: STATUS: ADM IN [facility] [address] [place] [address] END OF REPORT
[2020-02-16 11:25] VITALS: BP 137/61
--- NOTE | 2020-02-16 11:26 | MORECARE ---
CASE MANAGEMENT DISCHARGE SUMMARY PATIENT: NAKIA WALL UNIT: [id number] ADM DATE: 02/11/20 AGE: 84 : 34 SEX: F ROOM/BED: D.5293 AUTHOR: TESSA LOO PHYSICIAN: REFERRING PHYSICIAN: JANET DIETZ MD DATE OF SERVICE: 02/16/20 Discharge Plan Patient Name: NAKIA WALL [facility] [facility] 1935 Planned Disposition: Anticipated Discharge Date: Discharge Date: Expected LOS: Initial Reviewer: [email or web address] Initial Review Date: 02/11/2020 Generated: 02/16/20 12:25 pm Last DP export: 02/16/20 8:01 a Patient Name: NAKIA WALL Page [phone] at 1126 All edits/amendments must be made on the electronic document DICTATION DATE: 02/16/20 1125 COMMERCIAL CLEANER: PERI 02/16/20 1125 RPT#: [id number] DC DATE: STATUS: ADM IN [facility] [address] [place] [address] END OF REPORT
--- NOTE | 2020-02-16 12:46 | NUR ---
Nutrition Follow-up: NPO x 4 days. Surgery has been consulted for PEG placement; noted plans to place tomorrow. Wt: 80# (02/10) Last BM: 02/14 per chart Labs noted: Na 146, K+ 3.4, Ca 8.1 Meds noted: Senokot, NS @ 75, electrolyte protocol -When PEG ok to use, rec initiate Osmolite 1.0 @ 15 mL/hr and increase by 10 mL q 6 hrs to goal rate of 45 mL/hr (provides 1145 kcal, 48 g protein, 909 mL H2O) + H2O flushes 25 mL q hr. -Monitor wt. -RD following.
--- NOTE | 2020-02-16 14:03 | MORECARE ---
CASE MANAGEMENT DISCHARGE SUMMARY PATIENT: NAKIA WALL UNIT: [id number] ADM DATE: 02/11/20 AGE: 84 : 34 SEX: F ROOM/BED: D.8321 AUTHOR: TESSA LOO PHYSICIAN: REFERRING PHYSICIAN: JANET DIETZ MD DATE OF SERVICE: 02/16/20 Discharge Plan Patient Name: NAKIA WALL [facility] : 1935 Planned Disposition: Anticipated Discharge Date: Discharge Date: Expected LOS: Initial Reviewer: [email or web address] Initial Review Date: 02/11/2020 Generated: 02/16/20 3:02 pm External Providers External Provider: OTHER-OTHER Next Contact Date: Service Request Date: Service Type: Resolution: Reviewer: Comments: External Provider: [facility] Next Contact Date: Service Request Date: Service Type: Resolution: Reviewer: Comments: Last DP export: 02/16/20 10:26 a Patient Name: NAKIA WALL Page [phone] at 1403 All edits/amendments must be made on the electronic document DICTATION DATE: 02/16/201401 SOLUTION COORDINATOR: PERI 02/16/201401 RPT#: [id number] DC DATE: STATUS: ADM IN [facility] [address] [place] [address] END OF REPORT
[2020-02-16 14:34] VITALS: BP 144/84
[2020-02-16 20:00] VITALS: BP 168/88
[2020-02-17] VITALS: BP 182/98
--- NOTE | 2020-02-17 03:04 | NUR ---
I have reviewed this patient and I concur with the Shift Assessment completed by the Licensed Practical Nurse today this shift.
[2020-02-17 04:00] VITALS: BP 136/92
[2020-02-17 06:06] LABS: CALCIUM 7.8 mg/dL (8.5-10.1); CARBON DIOXIDE 18.6 mmol/L (21.0-32.0); CREATININE - SERUM 0.7 mg/dL (0.6-1.3); GLUCOSE 89 mg/dL (74-106); MAGNESIUM - SERUM 1.8 mg/dL (1.8-2.4); eGFR NON AFRICAN AMERICAN 84 mL/min (90-120)
[2020-02-17 06:54] LABS: CALC OSMOLALITY 287 mosm/kg (275-300); CHLORIDE - SERUM 112 mmol/L (98-107); POTASSIUM - SERUM 3.1 mmol/L (3.5-5.1); SODIUM 144 mmol/L (136-145); UREA NITROGEN 18 mg/dL (7-18)
--- NOTE | 2020-02-17 07:25 | NUR ---
RECEIVED PT IN BED EYES CLOSED RESP UNLABORED DOBHOFF TO RT NARE LEAKING FORMULA ON BED END OF DOBHOFF TUBE AT THE TIP OF PT NOSE REMOVED DOBHOFF BBS DIMINSHED NAD NOTED PAGE SENT TO LIZBETH CARTER APN
[2020-02-17 08:04] LABS: HEMATOCRIT 41.8 % (36.0-48.0); HEMOGLOBIN 14.3 g/dL (12-16); LYMPHOCYTES 8.1 % (15-50); MCH 32.8 pg (26.0-34.0); MCHC 34.2 g/dL (31.0-37.0); MCV 95.9 fL (80.0-100.0); MEAN PLATELET VOLUME 11.7 fL (7.4-10.4); NEUTROPHILS 82.3 % (40-80); PLATELET COUNT 295 10x3/uL (130-400); RBC 4.36 10x6/uL (4.00-5.40); RDW 12.7 % (11.5-14.5); WBC 12.2 10x3/uL (4.8-10.8)
--- NOTE | 2020-02-17 13:39 | MORECARE ---
CASE MANAGEMENT DISCHARGE SUMMARY PATIENT: NAKIA WALL UNIT: [id number] ADM DATE: 02/11/20 AGE: 84 : 34 SEX: F ROOM/BED: D.0323 AUTHOR: TESSA LOO PHYSICIAN: REFERRING PHYSICIAN: JANET DIETZ MD DATE OF SERVICE: 02/17/20 Discharge Plan Patient Name: NAKIA WALL [facility] [facility] 1935 Planned Disposition: Anticipated Discharge Date: Discharge Date: Expected LOS: Initial Reviewer: [email or web address] Initial Review Date: 02/11/2020 Generated: 02/17/20 2:39 pm External Providers External Provider: [facility] Next Contact Date: Service Request Date: Service Type: Resolution: Reviewer: Comments: Last DP export: 02/16/20 1:03 p Patient Name: NAKIA WALL Page [phone] at 1339 All edits/amendments must be made on the electronic document DICTATION DATE: 02/17/20 1339 CLAY MAKER: PERI 02/17/20 1339 RPT#: [id number] DC DATE: STATUS: ADM IN [facility] [address] [place] [address] END OF REPORT
--- NOTE | 2020-02-17 14:46 | MORECARE ---
CASE MANAGEMENT DISCHARGE SUMMARY PATIENT: NAKIA WALL UNIT: [id number] ADM DATE: 02/11/20 AGE: 84 : 34 SEX: F ROOM/BED: D.5863 AUTHOR: TESSA LOO PHYSICIAN: REFERRING PHYSICIAN: JANET DIETZ MD DATE OF SERVICE: 02/17/20 Discharge Plan Patient Name: NAKIA WALL [facility] : 1935 Planned Disposition: Anticipated Discharge Date: Discharge Date: Expected LOS: Initial Reviewer: [email or web address] Initial Review Date: 02/11/2020 Generated: 02/17/20 3:46 pm External Providers External Provider: [facility] Next Contact Date: Service Request Date: Service Type: Resolution: Reviewer: Comments: Last DP export: 02/17/20 12:39 p Patient Name: NAKIA WALL Page [phone] at 1446 All edits/amendments must be made on the electronic document DICTATION DATE: 02/17/20 1446 ADMISSIONS REPRESENTATIVE: PERI 02/17/20 1446 RPT#: [id number] DC DATE: STATUS: ADM IN [facility] [address] [place] [address] END OF REPORT
[2020-02-17 20:27] VITALS: BP 133/78
[2020-02-18 00:37] VITALS: BP 121/73
[2020-02-18 04:39] VITALS: BP 131/71
--- NOTE | 2020-02-18 07:00 | NUR ---
RECEIVED REPORT. ASSUMED CARE OF PATIENT. PATIENT NOTED WITH GARBLED SPEECH, UNABLE TO UNDERSTAND PATIENT. PATIENTS DAUGHTER AT BEDSIDE. PATIENT UNABLE TO FOLLOW COMMANDS AND GRABS TIGHTLY. CALL LIGHT WITHIN REACH. NO DISTRESS.
--- NOTE | 2020-02-18 09:50 | NUR ---
INCONTINENT CARES PROVIDED. NO DISTRESS.
[2020-02-18 10:30] LABS: HEMATOCRIT 42.4 % (36.0-48.0); HEMOGLOBIN 14.6 g/dL (12-16); MCH 32.7 pg (26.0-34.0); MCHC 34.4 g/dL (31.0-37.0); MCV 95.1 fL (80.0-100.0); MEAN PLATELET VOLUME 11.1 fL (7.4-10.4); PLATELET COUNT 258 10x3/uL (130-400); RBC 4.46 10x6/uL (4.00-5.40); RDW 12.5 % (11.5-14.5)
[2020-02-18 10:32] LABS: WBC 15.4 10x3/uL (4.8-10.8)
[2020-02-18 10:41] LABS: ANION GAP 16.2 mmol/L (8-16); CREATININE - SERUM 0.8 mg/dL (0.6-1.3); POTASSIUM - SERUM 3.2 mmol/L (3.5-5.1)
[2020-02-18 10:50] LABS: LYMPHOCYTES 5 % (15-50); NEUTROPHILS 94 % (40-80)
[2020-02-18 10:51] LABS: PLATELET ESTIMATE NORMAL; TARGET CELLS OCC
[2020-02-18 10:52] LABS: BURR CELLS OCC
[2020-02-18 11:00] VITALS: BP 133/75
[2020-02-18 15:00] VITALS: BP 122/75
--- NOTE | 2020-02-18 17:09 | NUR ---
RESTING PEACEFULLY IN BED WITH EYES OPEN. FAMILY AT BEDSIDE. NO DISTRESS. CALL LIGHT WITHIN REACH. DENIES NEEDS AT THIS TIME.
--- NOTE | 2020-02-18 19:00 | NUR ---
REPORT RECEIVED, PT CARE ASSUMED. PT LYING IN BED WITH EYES CLOSED, RR EVEN AND NONLABORED, NO S/S OF DISTRESS, AROUSES EASILY TO VOICE. DAUGHTER AT BEDSIDE. DENIES ANY NEEDS AT THIS TIME. BED IN LOWEST, SRX3, CALL LIGHT WITHIN REACH. WILL CTM.
[2020-02-18 20:00] VITALS: BP 139/81
[2020-02-19] VITALS: BP 151/91
[2020-02-19 04:00] VITALS: BP 155/89
--- NOTE | 2020-02-19 07:00 | NUR ---
RECEIVED REPORT. ASSUMED CARE OF PATIENT. WHITE BOARD UPDATED, BEDSIDE SHIFT REPORT COMPLETED. CALL LIGHT WITHIN REACH. PATIENT RESTING IN BED WITH EYES CLOSED. RESP EVEN AND UNLABORED. FAMILY REMAINS AT BEDSIDE. NO DISTRESS.
[2020-02-19 07:52] LABS: CALC OSMOLALITY 284 mosm/kg (275-300); CHLORIDE - SERUM 109 mmol/L (98-107); CREATININE - SERUM 0.7 mg/dL (0.6-1.3); GLUCOSE 84 mg/dL (74-106); MAGNESIUM - SERUM 1.8 mg/dL (1.8-2.4); PHOSPHOROUS 3.5 mg/dL (2.5-4.9); POTASSIUM - SERUM 3.2 mmol/L (3.5-5.1); SODIUM 142 mmol/L (136-145); UREA NITROGEN 22 mg/dL (7-18); eGFR NON AFRICAN AMERICAN 84 mL/min (90-120)
[2020-02-19 07:57] LABS: CARBON DIOXIDE 13.3 mmol/L (21.0-32.0)
[2020-02-19 08:00] VITALS: BP 185/106
[2020-02-19 08:02] LABS: BASOPHILS 0.1 % (0-2); EOSINOPHILS 0 % (0-7); HEMATOCRIT 47.9 % (36.0-48.0); HEMOGLOBIN 15.7 g/dL (12-16); IMMATURE GRANULOCYTES 1.2 % (0-5); LYMPHOCYTES 2.1 % (15-50); MCH 32.6 pg (26.0-34.0); MCHC 32.8 g/dL (31.0-37.0); MEAN PLATELET VOLUME 11.7 fL (7.4-10.4); MONOCYTES 6.7 % (2-11); NEUTROPHILS 89.9 % (40-80); PLATELET COUNT 212 10x3/uL (130-400); RBC 4.82 10x6/uL (4.00-5.40); RDW 12.7 % (11.5-14.5); WBC 18.8 10x3/uL (4.8-10.8)
[2020-02-19 08:03] LABS: MCV 99.4 fL (80.0-100.0)
--- NOTE | 2020-02-19 10:03 | NUR ---
SPOKE WITH DILIP IN DIETARY TO FIND OUT WHO IS THE HOSPITAL AIDE BECAUSE WE HAVE A CONSULT THAT HAS NOT BEEN COMPLETED FOR TUBE FEEDING. DILIP STATES SHE DOES NOT HAVE A LIST OF WHO IS TRASH MAN BUT WHEN AILYN ARRIVES SHE WILL ASK WHO THE HOSPITAL AIDE IS AND LET THEM KNOW THEY HAVE A CONSULT TO INITIATE TUBE FEEDINGS. THANKED DILIP FOR THIS ASSISTANCE.
[2020-02-19 11:00] VITALS: BP 116/74
--- NOTE | 2020-02-19 11:49 | NUR ---
WAITING ON DIETARY TO BRING OSMOLYTE 1.0 TO UNIT AT THIS TIME.
--- NOTE | 2020-02-19 12:49 | NUR ---
TUBE FEEDING NOW INITIATED AFTER RECEIVING FORMULA FROM DIETARY. NO DISTRESS.
[2020-02-19 15:00] VITALS: BP 111/71
[2020-02-19 20:30] VITALS: BP 138/80
[2020-02-20 04:41] VITALS: BP 141/87
[2020-02-20 07:08] LABS: HEMATOCRIT 39.2 % (36.0-48.0); HEMOGLOBIN 13.7 g/dL (12-16); MCH 32.6 pg (26.0-34.0); MCHC 34.9 g/dL (31.0-37.0); MCV 93.3 fL (80.0-100.0); MEAN PLATELET VOLUME 11.6 fL (7.4-10.4); PLATELET COUNT 209 10x3/uL (130-400); RDW 12.9 % (11.5-14.5); WBC 24.1 10x3/uL (4.8-10.8)
[2020-02-20 07:20] LABS: ANION GAP 13.7 mmol/L (8-16); CALCIUM 7.5 mg/dL (8.5-10.1); CARBON DIOXIDE 16.6 mmol/L (21.0-32.0); CREATININE - SERUM 0.8 mg/dL (0.6-1.3); MAGNESIUM - SERUM 1.7 mg/dL (1.8-2.4); POTASSIUM - SERUM 3.3 mmol/L (3.5-5.1)
[2020-02-20 07:24] LABS: PHOSPHOROUS 2.3 mg/dL (2.5-4.9)
[2020-02-20 09:32] VITALS: BP 140/91
[2020-02-20 13:15] LABS: LYMPHOCYTES 6 % (15-50); MONOCYTES 9 % (2-11); NEUTROPHILS 84 % (40-80); PLATELET ESTIMATE NORMAL
--- NOTE | 2020-02-20 13:30 | NUR ---
CLEANED PT UP FROM INCONT EPISODE. CASE MANAGEMENT AT BEDSIDE TALKING WITH FAMILY ABOUT PLACEMENT.
--- NOTE | 2020-02-20 14:03 | MORECARE ---
CASE MANAGEMENT DISCHARGE SUMMARY PATIENT: NAKIA WALL UNIT: [id number] ADM DATE: 02/11/20 AGE: 84 : 34 SEX: F ROOM/BED: D.3784 AUTHOR: TESSA LOO PHYSICIAN: REFERRING PHYSICIAN: JANET DIETZ MD DATE OF SERVICE: 02/20/20 Discharge Plan Patient Name: NAKIA WALL [facility] : 1935 Planned Disposition: Anticipated Discharge Date: Discharge Date: Expected LOS: Initial Reviewer: [email or web address] Initial Review Date: 02/11/2020 Generated: 02/20/20 3:02 pm Comments DCP- Discharge Planning Updated by [email or web address]: Angie Gibbons on 02/20/20 12:[address] CM RECIEVED ACCEPTANCE FROM [place] FROM [facility]. CM FAXED CLINICAL UPDATE. CM SPOKE WITH NAIMA FREITAS ABOUT ACCEPTANCE, AND FEELS THIS IS A SAFE DC PLAN. CM WILL CONTINUE TO ASSIST WITH DC PLANNING. ANGIE GIBBONS Last DP export: 02/17/20 1:46 p Patient Name: NAKIA WALL Page [phone] at 1403 All edits/amendments must be made on the electronic document DICTATION DATE: 02/20/20 140 DATA CENTER PROJECT MANAGER: PERI 02/20/20 1402 RPT#: [id number] DC DATE: STATUS: ADM IN [facility] [address] [place] [address] END OF REPORT
--- NOTE | 2020-02-20 15:56 | MORECARE ---
CASE MANAGEMENT DISCHARGE SUMMARY PATIENT: NAKIA WALL UNIT: [id number] ADM DATE: 02/11/20 AGE: 84 : 34 SEX: F ROOM/BED: D.1890 AUTHOR: TESSA LOO PHYSICIAN: REFERRING PHYSICIAN: JANET DIETZ MD DATE OF SERVICE: 02/20/20 Discharge Plan Patient Name: NAKIA WALL [facility] : 1935 Planned Disposition: Anticipated Discharge Date: Discharge Date: Expected LOS: Initial Reviewer: [email or web address] Initial Review Date: 02/11/2020 Generated: 02/20/20 4:56 pm Comments DCP- Discharge Planning Updated by [email or web address]: Angie Gibbons on 02/20/20 12:[address] CM RECIEVED ACCEPTANCE FROM [place] FROM [facility]. CM FAXED CLINICAL UPDATE. CM SPOKE WITH NAIMA FREITAS ABOUT ACCEPTANCE, AND FEELS THIS IS A SAFE DC PLAN. CM WILL CONTINUE TO ASSIST WITH DC PLANNING. ANGIE GIBBONS Coverage Notice Reviewer: [email or web address] - Angie Gibbons Notice Issued Date-Time: 02/20/2020 13:35 Notice Type: Patient Choice Letter Notice Delivered To: Family Member Relationship to Patient: Son Gas Singer Name: NAIMA CABRERA Delivery Method: HAND - Hand Delivered Fernanda Days: Prior Verbal Notification: Recipient Understood Notice: Yes Recipient Signature: Yes Med Rec Note Co-signed by Attending: Coverage Notice Comment: [facility] Last DP export: 02/20/20 1:03 p Patient Name: NAKIA WALL Page [phone] at 1556 All edits/amendments must be made on the electronic document DICTATION DATE: 02/20/201555 MAYONNAISE MIXER: PERI 02/20/20 1556 RPT#: [id number] DC DATE: STATUS: ADM IN [facility] [address] [place] [address] END OF REPORT
--- NOTE | 2020-02-20 18:15 | NUR ---
CLEANED PT FROM INCONT EPISODE AND REPOSITONED PT BACK IN THE BED. CALL LIGHT IN REACH, BEDSIDE RAILS X2, DAUGHTER AT BEDSIDE.
[2020-02-20 21:32] VITALS: BP 148/82
--- NOTE | 2020-02-20 22:50 | NUR ---
IN AND OUT CATH UNSUCCESSFUL. PATIENT TOLERATED PROCEDURE WELL.
--- NOTE | 2020-02-21 00:23 | NUR ---
PTS IV TO RIGHT WRIST LEAKING, IV CATH REMOVED, TIP INTACT. AFTER 4 DIFFERENT NURSES UNSUCCESSFULLY ATTEMPTED TO SITE PIV. REQUEST FOR IV ACCESS NURSE TO PLACE PIV.
--- NOTE | 2020-02-21 01:36 | NUR ---
I have reviewed this patient and I concur with the Shift Assessment completed by the Licensed Practical Nurse today this shift.
--- NOTE | 2020-02-21 02:36 | NUR ---
I have reviewed this patient and I concur with the Shift Assessment completed by the Licensed Practical Nurse today this shift.
[2020-02-21 04:00] VITALS: BP 97/63
[2020-02-21 06:29] LABS: CALC OSMOLALITY 280 mosm/kg (275-300); CALCIUM 7.5 mg/dL (8.5-10.1); CHLORIDE - SERUM 111 mmol/L (98-107); CREATININE - SERUM 0.6 mg/dL (0.6-1.3); MAGNESIUM - SERUM 1.8 mg/dL (1.8-2.4); PHOSPHOROUS 1.8 mg/dL (2.5-4.9); POTASSIUM - SERUM 3.6 mmol/L (3.5-5.1); SODIUM 137 mmol/L (136-145); UREA NITROGEN 25 mg/dL (7-18); eGFR NON AFRICAN AMERICAN > 90 mL/min (90-120)
[2020-02-21 06:30] LABS: GLUCOSE 157 mg/dL (74-106)
[2020-02-21 07:02] LABS: BASOPHILS 0.1 % (0-2); EOSINOPHILS 0.3 % (0-7); HEMATOCRIT 35.9 % (36.0-48.0); HEMOGLOBIN 12.3 g/dL (12-16); IMMATURE GRANULOCYTES 0.8 % (0-5); LYMPHOCYTES 8.1 % (15-50); MCH 32.3 pg (26.0-34.0); MCHC 34.3 g/dL (31.0-37.0); MCV 94.2 fL (80.0-100.0); MEAN PLATELET VOLUME 11.8 fL (7.4-10.4); MONOCYTES 4.7 % (2-11); PLATELET COUNT 239 10x3/uL (130-400); RBC 3.81 10x6/uL (4.00-5.40); RDW 13.1 % (11.5-14.5)
--- NOTE | 2020-02-21 07:25 | NUR ---
RECEIVED REPORT. ASSUMED CARE OF PATIENT. CALL LIGHT WITHIN REACH. PATIENT DAUGHTER AT BEDSIDE. TUBE FEEDING INFUSING ORDERED AND AT GOAL RATE AT THIS TIME. PATIENT REMAINS WITH UNCOMPREHENSIBLE SOUNDS. BEDSIDE SHIFT REPORT COMPLETED, WHITE BOARD UPDATED.
[2020-02-21 09:28] VITALS: BP 109/77
--- NOTE | 2020-02-21 10:06 | NUR ---
NUTRITION F/U CHART REVIEWED. SPOKE WITH NURSING. PT TOLERATING TUBE FEEDS OSMOLITE 1.0 AT GOAL RATE 45 CC/HR. 100 CC H2O FLUSH Q 4 HOURS. TUBE FEEDS AND FLUSH PROVIDING ~1500 CC FLUID PER DAY. [address] FOLLOWING
--- NOTE | 2020-02-21 11:13 | NUR ---
RESTING IN BED, NO DISTRESS. 80 CC RESIDUAL NOTED AT THIS TIME. CALL LIGHT WITHIN REACH.
[2020-02-21 12:09] VITALS: BP 126/82
[2020-02-21 12:48] LABS: BILIRUBIN NEGATIVE (NEGATIVE); GLUCOSE NEGATIVE (NEGATIVE); KETONE NEGATIVE (NEGATIVE); NITRITE NEGATIVE (NEGATIVE); UROBILINOGEN NORMAL (NORMAL)
[2020-02-21 15:35] VITALS: BP 119/69
[2020-02-21 22:28] VITALS: BP 128/74
--- NOTE | 2020-02-21 23:46 | NUR ---
OPERATIONS MANAGER AT BED SIDE TO OBTAIN VITALS.
[2020-02-22 01:51] VITALS: BP 117/72
--- NOTE | 2020-02-22 02:10 | NUR ---
I have reviewed this patient and I concur with the Shift Assessment completed by the Licensed Practical Nurse today this shift.
[2020-02-22 06:19] LABS: HEMATOCRIT 39.2 % (36.0-48.0); HEMOGLOBIN 13.6 g/dL (12-16); MCH 32.3 pg (26.0-34.0); MCHC 34.7 g/dL (31.0-37.0); MCV 93.1 fL (80.0-100.0); MEAN PLATELET VOLUME 11.2 fL (7.4-10.4); PLATELET COUNT 275 10x3/uL (130-400); RBC 4.21 10x6/uL (4.00-5.40); RDW 13.4 % (11.5-14.5); WBC 22.3 10x3/uL (4.8-10.8)
[2020-02-22 06:56] VITALS: BP 124/67
[2020-02-22 07:00] LABS: MAGNESIUM - SERUM 1.8 mg/dL (1.8-2.4)
[2020-02-22 07:05] LABS: CREATININE - SERUM 0.8 mg/dL (0.6-1.3); PHOSPHOROUS 2.3 mg/dL (2.5-4.9)
[2020-02-22 08:50] LABS: LYMPHOCYTES 4 % (15-50); MONOCYTES 3 % (2-11); NEUTROPHILS 89 % (40-80); PLATELET ESTIMATE NORMAL
[2020-02-22 10:14] VITALS: BP 163/81
--- NOTE | 2020-02-22 10:36 | NUR ---
RESTARTED TUBE FEEDING @45ML/HR VIA LUQ PEG TUBE @1035. WILL CTM.
[2020-02-22 16:43] VITALS: BP 132/62
[2020-02-22 20:00] VITALS: BP 120/76
[2020-02-23] VITALS: BP 118/75
--- NOTE | 2020-02-23 03:00 | NUR ---
PEG TUBE LEAKING AROUND INSERTION SITE. TUBE FEEDING STOPPED, CLEANSED AROUND INSERTION SITE, PLACED DRAIN SPONGE AROUND TUBE. CALLED CERTIFIED ART THERAPIST TO BRING PT A NEW ABD BINDER.
--- NOTE | 2020-02-23 03:53 | NUR ---
I have reviewed this patient and I concur with the Shift Assessment completed by the Licensed Practical Nurse today this shift.
[2020-02-23 04:00] VITALS: BP 134/90
[2020-02-23 06:01] LABS: BASOPHILS 0.1 % (0-2); EOSINOPHILS 0.8 % (0-7); HEMATOCRIT 36.6 % (36.0-48.0); HEMOGLOBIN 12.3 g/dL (12-16); IMMATURE GRANULOCYTES 0.6 % (0-5); LYMPHOCYTES 3.4 % (15-50); MCH 31.9 pg (26.0-34.0); MCHC 33.6 g/dL (31.0-37.0); MONOCYTES 8.8 % (2-11); NEUTROPHILS 86.3 % (40-80); PLATELET COUNT 224 10x3/uL (130-400); RBC 3.85 10x6/uL (4.00-5.40); RDW 13.5 % (11.5-14.5)
[2020-02-23 06:21] LABS: MCV 95.1 fL (80.0-100.0); WBC 16.5 10x3/uL (4.8-10.8)
--- NOTE | 2020-02-23 07:37 | NUR ---
REPORTED TO ME PT TF WAS STOPPED AT 0300 FOR GASTRIC LEAZKING WITH THICK SLUDGE UNDER ABDOMINAL BINDER. CHECKED PEG SITE AND ON PEG SITE AND AROUND DRESSING THERE IS THICK YELLOW EXUDATE. CALLED AND SPOKE WITH DR. ARCE AND HE STATES HE WILL COME LOOK AT IT. I VERBALIZED UNDERSTANDING.
[2020-02-23 07:45] LABS: ANION GAP 13.8 mmol/L (8-16); CALCIUM 7.9 mg/dL (8.5-10.1); CARBON DIOXIDE 18.3 mmol/L (21.0-32.0); CREATININE - SERUM 0.8 mg/dL (0.6-1.3); MAGNESIUM - SERUM 1.9 mg/dL (1.8-2.4); POTASSIUM - SERUM 4.1 mmol/L (3.5-5.1)
[2020-02-23 07:46] LABS: PHOSPHOROUS 3.2 mg/dL (2.5-4.9)
--- NOTE | 2020-02-23 08:34 | NUR ---
CALLED [employer] FOR A NEW ABDOMINAL BINDER.
[2020-02-23 09:57] VITALS: BP 129/75
--- NOTE | 2020-02-23 10:27 | NUR ---
ABDOMINAL BINDER PLACED ON PT.
--- NOTE | 2020-02-23 13:08 | NUR ---
I have reviewed this patient and I concur with the Shift Assessment completed by the Licensed Practical Nurse today this shift.
--- NOTE | 2020-02-23 13:27 | OP ---
PATIENT NAME: NAKIA WALL MEDICAL RECORD: [id number] :33 LOCATION:D.M2 D.2123 ADMISSION DATE:02/11/20 SURGEON: JACQUI ARCE MD DATE OF OPERATION: 02/17/2020 PREOPERATIVE DIAGNOSES: 1. Dysphagia. 2. Poor p.o. intake. 3. Cerebrovascular accident. POSTOPERATIVE DIAGNOSES: 1. Dysphagia. 2. Poor p.o. intake. 3. Cerebrovascular accident. PROCEDURE: PEG tube placement. SURGEON: Jacqui Arce MD REPORT OF PROCEDURE: An Olympus endoscope was advanced through the mouth and esophagus. As we entered the stomach, we insufflated the stomach and found an area on the antrum of the stomach to house her PEG tube. A total of 5 cc of 1% lidocaine with epinephrine was infused to the skin in the left upper quadrant of the abdomen. A skin incision was then made with an 11-blade and an Angiocath needle was used to penetrate the skin and into the gastric lumen. This Angiocath was used to pass a wire into the stomach. We then grasped this wire and pulled it through the mouth and esophagus. We affixed the PEG tube to the wire and pulled these through the mouth and esophagus and through the anterior abdominal wall until it rested at 2 cm at the skin. The scope was reinserted and showed there was no sign of any active bleeding and the PEG tube was in good position. The insufflation was then removed. COMPLICATIONS: None. CONDITION: Stable. ANESTHESIA: TIVA. BLOOD LOSS: Minimal. TRANSINT:[id number] Voice Confirmation ID: [id number] DOCUMENT ID: [id number] JACQUI ARCE MD at 1327 CC: [id number] DICTATION DATE: 02/17/20 1212 FOLDED CLOTH TAPER: 02/17/20 1446 ADM IN [facility] [id number] [place] [address]
--- NOTE | 2020-02-23 13:46 | NUR ---
Nutrition Follow-up: TF stopped at time of visit this AM 2/2 drainage around PEG. Per surgery, cuff tightened and ok to restart TF. Diet: Osmolite 1.0 @ 45 Wt: 80# (02/10) Labs noted: Na 132, Ca 7.9 Meds noted: Senokot, Miralax, electrolyte protocol -TF as tolerated. -Need new wt. -RD following.
--- NOTE | 2020-02-23 14:32 | NUR ---
DR. CASTILLO CONSULTED ABOUT PLACING CVL. HE ROUNDED ON PT BUT NEVER PLACED CVL OR STATED ANYTHING ABOUT IT IN HIS NOTE. PAGED DR. ARCE.
--- NOTE | 2020-02-23 14:40 | NUR ---
SPOKE WITH DR. ARCE OVER THE PHONE ABOUT PLACING CVL. HE STATES TO GET CONSENT SIGNED AND HE WILL BE OVER HERE IN A MINUTE. I VERBALIZED UNDERSTANDING.
--- NOTE | 2020-02-23 14:48 | NUR ---
PT'S DAUGHTER SIGNED CVL CONSENT. PT CONFUSED.
--- NOTE | 2020-02-23 15:00 | NUR ---
[place] MESSAGE PER DR. ARCE STATES TO RESTART TF. CHECKED RESIDUAL AND GOT 150ML WITH CRUSH MEDS IN LIQUID. WILL REPORT TO DR. ARCE BEFORE STARTING TF.
[2020-02-23 15:06] VITALS: BP 134/82
--- NOTE | 2020-02-23 15:07 | NUR ---
REPORTED [address] ARCE AND THAT CRUSHED MEDS WERE IN RESIDUAL. HE STATES TO GO AHEAD AND START TF BUT IF RESISUAL IS OVER 200ML HOLD TF. I VERBALIZED UNDERSTANDING.
--- NOTE | 2020-02-23 15:10 | NUR ---
PEG TUBE FEEDINGS STARTED AT 25ML/HR AND H20 FLUSH 100ML Q4HR'S. WILL CONTINUE TO MONITOR.
--- NOTE | 2020-02-23 15:28 | NUR ---
DR. ARCE PLACED A 16CM RIGHT SUBCLAVIAN TRIPLE LUMEN CVL. WILL AWAIT XR RESULTS TO SEE IF OK TO USE.
--- NOTE | 2020-02-23 17:30 | NUR ---
TF PAUSED. RESIDUAL CHECKED 170ML PUT BACK IN GTUBE. RESTARTED TF.
--- NOTE | 2020-02-23 17:57 | NUR ---
COMPLETE ORAL CARE DONE ON PT.
--- NOTE | 2020-02-23 18:40 | NUR ---
H20 FLUSH CHANGED FROM 100ML Q4H TO 25ML QHR.
[2020-02-23 20:00] VITALS: BP 184/97
--- NOTE | 2020-02-24 02:37 | NUR ---
NO RESIDUAL NOTED FROM TUBE FEEDINGS.
--- NOTE | 2020-02-24 04:37 | NUR ---
I have reviewed this patient and I concur with the Shift Assessment completed by the Licensed Practical Nurse today this shift.
[2020-02-24 06:50] LABS: BASOPHILS 0 % (0-2); EOSINOPHILS 0.6 % (0-7); HEMATOCRIT 38.1 % (36.0-48.0); HEMOGLOBIN 13.1 g/dL (12-16); IMMATURE GRANULOCYTES 0.5 % (0-5); LYMPHOCYTES 2.6 % (15-50); MCH 32.3 pg (26.0-34.0); MCHC 34.4 g/dL (31.0-37.0); MCV 93.8 fL (80.0-100.0); MEAN PLATELET VOLUME 10.6 fL (7.4-10.4); MONOCYTES 10.1 % (2-11); NEUTROPHILS 86.2 % (40-80); PLATELET COUNT 228 10x3/uL (130-400); RBC 4.06 10x6/uL (4.00-5.40); RDW 13.4 % (11.5-14.5); WBC 15.1 10x3/uL (4.8-10.8)
--- NOTE | 2020-02-24 07:00 | NUR ---
RECEVIED REPORT FROM SHIPPING CHECKER. PT LYING IN BED WITH HOB AT 20 DEGREES. RAISED HOB TO 30 DEGREES. PT TF OSMOLITE AT 45ML/HR AND H20 FLUSH 25ML/HR. WILL CONTINUE TO MONITOR. PT'S DAUGHTER AT BEDSIDE. BED LOW. CL IN REACH.
[2020-02-24 07:13] LABS: ANION GAP 11.5 mmol/L (8-16); CALCIUM 7.7 mg/dL (8.5-10.1); CARBON DIOXIDE 22.7 mmol/L (21.0-32.0); CREATININE - SERUM 0.8 mg/dL (0.6-1.3); POTASSIUM - SERUM 4.2 mmol/L (3.5-5.1)
[2020-02-24 08:21] VITALS: BP 159/91
--- NOTE | 2020-02-24 10:05 | NUR ---
PT HAD OVER 230ML RESIDUAL. TF PLACED ON HOLD.
--- NOTE | 2020-02-24 10:48 | NUR ---
I have reviewed this patient and I concur with the Shift Assessment completed by the Licensed Practical Nurse today this shift.
[2020-02-24 11:41] VITALS: BP 157/96
--- NOTE | 2020-02-24 13:20 | NUR ---
PT HAD OVER 200ML RESIDUAL. WILL KEEP TF ON HOLD. WILL CONTINUE TO MONITOR.
--- NOTE | 2020-02-24 14:00 | NUR ---
CALLED THE IMPROVEMENT COORDINATOR EXT AND RECEVIED NO ANSWER. PAGED THE IMPROVEMENT COORDINATOR AND WILL AWAIT A CALL BACK TO ASK ABOUT TF.
--- NOTE | 2020-02-24 16:15 | NUR ---
PT HAD 140ML RESIDUAL. WILL KEEP TF ON HOLD.
[2020-02-24 16:33] VITALS: BP 148/90
--- NOTE | 2020-02-24 16:33 | NUR ---
FLUSHED CVL TRIPLE LUMEN WITH 1OCC OF NS. EACH LINE HAD BLOOD DRAW BACK.
--- NOTE | 2020-02-24 17:02 | NUR ---
SCD'S PLACED BILATERALLY ON PT'S LEGS.
--- NOTE | 2020-02-24 18:34 | NUR ---
COMPLETE ORAL CARE, BED BATH, AND LINEN CHANGE DONE BY THIS NURSE AND CENTRAL SUPPLY SUPERVISOR. PT HAD 85ML RESIDUAL. CHANGED TF BAG. RESTARTED TF AT 25ML/HR AND 25ML/HR H20 FLUSH. WILL COTNINUE TO MONITOR.
--- NOTE | 2020-02-24 18:40 | NUR ---
AEMT BRUSHED PT'S HAIR AND PLACED IN A BUN.
--- NOTE | 2020-02-24 19:26 | NUR ---
INITIAL ROUNDS COMPLETED. PT RESTING WITH EYES CLOSED. RESP EVEN AND REGULAR. SR UP X2, CALL LIGHT WITHIN REACH.
[2020-02-24 20:00] VITALS: BP 137/79
--- NOTE | 2020-02-24 22:23 | NUR ---
ASSESSMENT COMPLETED AT 2005 HRS. VSS. PT ALERT, CONFUSED AND SAYING "CURRY.CURRY, CURRY" REPETITIVELY. NEVES BUT DOES NOT FOLLOW CAMMANDS. RTLSC WITH NS AT 30CC/HR TO MEDIAL PORT. DISTAL AND PROXIMAL PORT SL. LUNGS DIMINISHED IN BASE BILAT. GENERALIZED EDEMA NOTED. ABS BINDER NOTED. PEG TUBE CLEAN, DRY AND INTACT WITH OSMOLITE GOING AT 45CC/HR. RESIDUAL CHECKED WITH 130CC NOTED. TF PLACED ON HOLD. SCD'S IN USE. REMOVED AND SKIN INSPECTED. NO BREAKDOWN NOTED. PM MEDS GIVEN CRUSHED VIA PEG TUBE. PT INCONTINENT OF GREEN STOOL. INCONTINENT CARE DONE, BED LINENS CHANGED. REPOSITIONED IN BED FOR COMFORT. SR UP X2, BED ALARM ON AND DAUGHTER AT BEDSIDE. SMALL STAGE 1 NOTED OT TOP OF COCCYX.
--- NOTE | 2020-02-25 00:12 | NUR ---
70 CC RESIDUAL NOTED. OSMOLITE 1.0 RESTARTED AT 25CC/HR.
[2020-02-25 00:48] VITALS: BP 116/76
--- NOTE | 2020-02-25 02:01 | NUR ---
PT INCONTNENT OF URINE. INCONTINENT CARE DONE. PT REPOSITIONED ONTO R SIDE. DAUGHTER AT BEDSIDE. SR UP X2, CALL LIGHT WITHIN REACH.
--- NOTE | 2020-02-25 04:12 | NUR ---
PT RESTING WITH EYES CLOSED. RESP EVEN AND REGULAR. DAUGHTER AT BEDSIDE.
[2020-02-25 04:46] VITALS: BP 140/80
--- NOTE | 2020-02-25 06:19 | NUR ---
VSS THROUGHOUT NIGHT. SR PER CM. PT INCONTINENT X4 DURING SHIFT. NEEDS MET; WILL CONTINUE TO MONITOR.
--- NOTE | 2020-02-25 07:00 | NUR ---
RECEIVED REPORT. ASSUMED CARE OF PATIENT. CALL LIGHT WITHIN REACH. BEDSIDE SHIFT REPORT COMPLETE. WHITE BOARD UPDATED. PATIENT WITH FAMILY AT BEDSIDE WITH EYES CLOSED. RESP EVEN AND UNLABORED. TOLERATING GT FEEDING WELL. SPEECH IS INCOMPREHENSIBLE. NO DISTRESS. SR, RATE OF 93 ON TELEMETRY.
[2020-02-25 07:07] LABS: BASOPHILS 0.1 % (0-2); EOSINOPHILS 1.6 % (0-7); HEMOGLOBIN 11.6 g/dL (12-16); IMMATURE GRANULOCYTES 0.7 % (0-5); LYMPHOCYTES 5.4 % (15-50); MCH 32.3 pg (26.0-34.0); MCHC 34.1 g/dL (31.0-37.0); MCV 94.7 fL (80.0-100.0); MEAN PLATELET VOLUME 11.1 fL (7.4-10.4); MONOCYTES 10.8 % (2-11); NEUTROPHILS 81.4 % (40-80); PLATELET COUNT 231 10x3/uL (130-400); RBC 3.59 10x6/uL (4.00-5.40); RDW 13.3 % (11.5-14.5)
[2020-02-25 07:17] LABS: CALC OSMOLALITY 275 mosm/kg (275-300); CALCIUM 7.4 mg/dL (8.5-10.1); CARBON DIOXIDE 21.8 mmol/L (21.0-32.0); CHLORIDE - SERUM 107 mmol/L (98-107); CREATININE - SERUM 0.7 mg/dL (0.6-1.3); GLUCOSE 115 mg/dL (74-106); POTASSIUM - SERUM 3.6 mmol/L (3.5-5.1); SODIUM 135 mmol/L (136-145); UREA NITROGEN 27 mg/dL (7-18); eGFR NON AFRICAN AMERICAN 84 mL/min (90-120)
--- NOTE | 2020-02-25 07:45 | NUR ---
INCONTINENT CARES PROVIDED.
[2020-02-25 09:41] VITALS: BP 152/86
[2020-02-25 12:15] VITALS: BP 167/94
--- NOTE | 2020-02-25 13:00 | NUR ---
GT RESIDUAL 45CC, FORMULA INCREASED TO 40 ML/HR AT THIS TIME. NO DISTRESS. TOLERATING FORMULAR WELL.
[2020-02-25] MEDS ORDERED: AUGMENTIN ES-6125 ML PEG (14:21)
--- NOTE | 2020-02-25 15:30 | NUR ---
NOTED BY MANTEL CRAFTSMAN AND CASE MANAGEMENT THAT PATIENTS BED AT THE [facility] WAS GIVEN AWAY SO PATIENT CURRENTLY DOES NOT HAVE A BED AT THAT FACILITY. PLACEMENT IS ON HOLD UNTIL THURSDAY WHEN CASE MANAGEMENT CAN FIND FURTHER PLACEMENT.
[2020-02-25 17:30] VITALS: BP 155/97
[2020-02-25 20:00] VITALS: BP 150/93
--- NOTE | 2020-02-25 22:18 | NUR ---
INITIAL ROUNDS COMPLETED AT 1910 HRS. PT RESTING WITH EYES CLOSED. RESP EVEN AND REGULAR. PT INCONTINENT OF URINE AND STOOL AT 1940 HRS. INCONTINENT CARE DONE. PT REPOSITIONED IN BED FOR COMFORT. ASSESMENT COMPLETED AT 2005 H RS. VSS. SR PER CM HR 73. PT LETHARGIC, OPENS EYES TO VERBAL STIMULI BUT QUICKLY FALLS BACK ASLEEP. IV TO RTLSC WITH NS AT 30CC/HR TO MEDIAL PORT. OTHER PORTS SL. LUNGS DIMINISHED IN BASES BILAT. ABD SOFT WITH ACTIVE BS NOTED. ABD BINDER IN USE. PEG TUBE WITH OSMOLITE AT 40CC/HR. RESIDUAL CHECK WITH 150CC NOTED. BUTTOCKS RED. REPOSITIONED IN BED. PM MEDS GIVEN VIA PEG. NEW FEEDING BAG HUNG. PT CURRENTLY RESTING WITH EYES CLOSED. RESP EVEN AND REGULAR. SR UP X2, CALL LIGHT WITHIN REACH AND DAUGHTER AT BEDSIDE.
--- NOTE | 2020-02-26 00:22 | NUR ---
PT RESTING WITH EYES CLOSED. RESP EVEN AND REGULAR. DAUGHTER AT BEDSIDE.
--- NOTE | 2020-02-26 01:13 | NUR ---
PT RESTING WITH EYES CLOSED. RESP EVEN AND REGULAR. SR UP X2, CALL LIGHT WITHIN REACH.
--- NOTE | 2020-02-26 02:57 | NUR ---
PT INCONTINENT OF URINE AND STOOL. INCONTINENT CARE DONE. PT REPOSITIONED IN BED FOR COMFORT. ORAL CARE DONE. PEG TUBE RESIDUAL CHECKED WITH 130CC OF GREEN FLUID NOTED. DAUGHTER AT BEDSIDE.
[2020-02-26 04:00] VITALS: BP 139/104
--- NOTE | 2020-02-26 04:30 | NUR ---
PT RESTING WITH EYES CLOSED. RESP EVEN AND REGULAR. RESIDUAL CHECK FROM EARLIER GREEN IN COLOR. SR UP X2, CALL LIGHT WITHIN REACH AND DAUGHTER AT BEDSIDE.
--- NOTE | 2020-02-26 05:53 | NUR ---
BROWN EXUDATE NOTED AROUND PEG TUBE. AREA CLEANED AND NEW DRESSING APPLIED. PT REPOSITONED SEVERAL TIMES DURNG SHIFT. NEEDS MET; WILL CONTINUE TO MONITOR.
[2020-02-26 06:03] LABS: BASOPHILS 0.1 % (0-2); EOSINOPHILS 1.2 % (0-7); HEMATOCRIT 32.2 % (36.0-48.0); HEMOGLOBIN 10.6 g/dL (12-16); IMMATURE GRANULOCYTES 1.2 % (0-5); LYMPHOCYTES 6.5 % (15-50); MCH 31.5 pg (26.0-34.0); MCHC 32.9 g/dL (31.0-37.0); MCV 95.8 fL (80.0-100.0); MEAN PLATELET VOLUME 10.5 fL (7.4-10.4); MONOCYTES 12.3 % (2-11); NEUTROPHILS 78.7 % (40-80); PLATELET COUNT 265 10x3/uL (130-400); RBC 3.36 10x6/uL (4.00-5.40); RDW 13.2 % (11.5-14.5); WBC 10.5 10x3/uL (4.8-10.8)
--- NOTE | 2020-02-26 07:00 | NUR ---
RECEIVED REPORT. ASSUMED CARE OF PATIENT. PAITENT WITH EYES OPEN, GARBLED SPEECH. RESP SHALLOW. HOB ELEVATED. GT FEEDING INFUSING AT 40ML/HR. CALL LIGHT WITHIN REACH. WHITE BOARD UPDATED, BEDSIDE SHIFT REPORT COMPLETE. FAMILY AT BEDSIDE WITH EYES CLOSED.
[2020-02-26 07:03] LABS: ANION GAP 12.8 mmol/L (8-16); CALCIUM 7.4 mg/dL (8.5-10.1); CARBON DIOXIDE 20.5 mmol/L (21.0-32.0); CREATININE - SERUM 0.8 mg/dL (0.6-1.3)
[2020-02-26 07:05] LABS: POTASSIUM - SERUM 4.3 mmol/L (3.5-5.1)
--- NOTE | 2020-02-26 07:27 | NUR ---
METOPROLOL ADMINISTERED AT THIS TIME DUE TO HR ELEVATING TO THE 130s. TURNED AND REPOSITIONED. FAMILY AT BEDSIDE. CALL LIGHT WITHIN REACH. GT INFUSING AT 40 ML/HR.
--- NOTE | 2020-02-26 07:52 | NUR ---
O2 2L/NC APPLIED TO PATIENT FOR SHALLOW RAPID RESPIRATIONS. EKG COMPLETED WITH ST, RATE 131. EKG PLACED ON CHART. JAVA WEB APPLICATION DEVELOPER NOTIFIED OF LOPRESSOR ADMINISTERED AT THIS TIME. CHARGE NURSE NOTIFIED. WARP CLAMPER PAGED FOR FURTHER ORDERS.
--- NOTE | 2020-02-26 08:26 | NUR ---
METOPROLOL EFFECTIVE, HR DOWN TO 88-90 AT THIS TIME. PATIENT RESTING WITH EYES CLOSED, RESP 24 AND EVEN. CALL LIGHT WITHIN REACH.
--- NOTE | 2020-02-26 08:42 | NUR ---
THIS REPAIR CAMERAMAN WALKED BY MONITOR STATION AND NOTED PATIENT TO HAVE A PULSE OF 42 WITH A DECLINE TO 38. THIS REPAIR CAMERAMAN PROCEEDED TO PATIENT ROOM, LIZZETH RAPP CALLED AND CHEST COMPRESSIONS INITIATED.
--- NOTE | 2020-02-26 09:17 | NUR ---
0912-REC'D PT TO ICU. INTUBATED.
--- NOTE | 2020-02-26 09:19 | NUR ---
ALL MONITIRING EQUIPMENT ATTACHED AND ALARMS SET.
--- NOTE | 2020-02-26 09:44 | NUR ---
UNABLE TO OBTAINE BP. PULSE 100SR. MANUAL SBP DOPPLER 72. LEVOPHED GTT STARTED.
[2020-02-26 09:45] VITALS: BP 60/00
--- NOTE | 2020-02-26 09:57 | NUR ---
SPOKE TO FAMILY RE: CODE STATUS. PTS SON STATES NO CHEST COMPRESSIONS, NO SHOCK.
[2020-02-26 10:00] VITALS: BP 110/00
--- NOTE | 2020-02-26 10:01 | NUR ---
TEMP 93.3. BEAR GGER WARMING APPLIED.
--- NOTE | 2020-02-26 10:03 | MORECARE ---
CASE MANAGEMENT DISCHARGE SUMMARY PATIENT: NAKIA WALL UNIT: [id number] ADM DATE: 02/11/20 AGE: 84 : 34 SEX: F ROOM/BED: D.2306 AUTHOR: CINDADOC PHYSICIAN: REFERRING PHYSICIAN: JANET DIETZ MD DATE OF SERVICE: 02/26/20 Discharge Plan Patient Name: NAKIA WALL Facility: [facility]:[place] : 1935 Planned Disposition: Anticipated Discharge Date: Discharge Date: Expected LOS: Initial Reviewer: [id number] Initial Review Date: 02/11/2020 Generated: 02/26/20 11:02 am Comments DCP- Discharge Planning Updated by [email or web address]: Precious Morales on 02/26/20 9:[address] LATE ENTRY 02/25/20 CM received discharge notification. CM contacted The [facility] and was told patient was on waiting list. Mikki from The [facility] called CM and stated that they had not received any updates lately and wasn't aware that patient was ready for discharge and they currently did not have a bed available. Mikki stated they should have a bed early this coming week. CM will continue to follow and assist as needed with discharge planning / needs. DCP- Discharge Planning Updated by [id number]: Angie Gibbons on 02/20/20 12:[address] CM RECIEVED ACCEPTANCE FROM GARETH FROM THE [facility]. CM FAXED CLINICAL UPDATE. CM SPOKE WITH NAIMA FOTRINO ABOUT ACCEPTANCE, AND FEELS THIS IS A SAFE DC PLAN. CM WILL CONTINUE TO ASSIST WITH DC PLANNING. ANGIE GIBBONS Coverage Notice Reviewer: [id number] - Angie Gibbons Notice Issued Date-Time: 02/20/2020 13:35 Notice Type: Patient Choice Letter Notice Delivered To: Family Member Relationship to Patient: Son Cellar Worker Name: NAIMA WALL/ DEBORAH Delivery Method: HAND - Hand Delivered Fernanda Days: Prior Verbal Notification: Recipient Understood Notice: Yes Recipient Signature: Yes Med Rec Note Co-signed by Attending: Coverage Notice Comment: jennifer for [facility] Last DP export: 02/20/20 2:56 p Patient Name: NAKIA WALL Page [phone] at 1003 All edits/amendments must be made on the electronic document DICTATION DATE: 02/26/20 1002 WOOD TURNING LATHE OPERATOR: PERI 02/26/20 1002 RPT#: [id number] DC DATE: STATUS: ADM IN [facility] [address] [place] [address] END OF REPORT
[2020-02-26 10:17] LABS: CKMB 8.4 U/L (0.0-3.6); CREATINE KINASE 1067 UL (21-215)
--- NOTE | 2020-02-26 10:22 | NUR ---
ABG'S CALLED TO DR HERNÁNDEZ. REC'D ORDERS. 2 AMPS BICARB GIVEN ORDERED.
[2020-02-26 11:20] VITALS: BP 60/00
[2020-02-26 11:40] VITALS: BP 110/00
[2020-02-26 12:00] VITALS: BP 70/00
--- NOTE | 2020-02-26 13:16 | NUR ---
FAMILY DECIDED TO TERMINALLY EXTUBATE PT. DR HERNÁNDEZ SPOKE TO FAMILY AT BS. 1221 PT BECAME ASYSTOLE ON CM AND PT WAS PRONOUNCED AT [address] HERNÁNDEZ WITH FAMILY AT BS. NO BELONGINGS IN ROOM. [facility] NOTIFIED.
--- NOTE | 2020-02-26 15:19 | NUR ---
PT PICKED UP BY NELSON WILKINSON WITH [facility]. PICKING UP FOR [facility].
--- NOTE | 2020-02-26 21:01 | MORECARE ---
CASE MANAGEMENT DISCHARGE SUMMARY PATIENT: NAKIA WALL UNIT: [id number] ADM DATE: 02/11/20 AGE: 84 : 34 SEX: F ROOM/BED: D.2306 AUTHOR: CINDADOC PHYSICIAN: REFERRING PHYSICIAN: JANET DIETZ MD DATE OF SERVICE: 02/26/20 Discharge Plan Patient Name: NAKIA WALL Facility: [facility]:[place] : 1935 Planned Disposition: Anticipated Discharge Date: Discharge Date: 02/26/2020 Expected LOS: Initial Reviewer: [id number] Initial Review Date: 02/11/2020 Generated: 02/26/20 10:00 pm Comments DCP- Discharge Planning Updated by [email or web address]: Precious Morales on 02/26/20 9:[address] LATE ENTRY 02/25/20 CM received discharge notification. CM contacted [facility] and was told patient was on waiting list. Mikki from The [facility] called CM and stated that they had not received any updates lately and wasn't aware that patient was ready for discharge and they currently did not have a bed available. Mikki stated they should have a bed early this coming week. CM will continue to follow and assist as needed with discharge planning / needs. DCP- Discharge Planning Updated by [id number]: Angie Gibbons on 02/20/20 12:[address] CM RECIEVED ACCEPTANCE FROM GARETH FROM THE [facility]. CM FAXED CLINICAL UPDATE. CM SPOKE WITH NAIMA FREITAS ABOUT ACCEPTANCE, AND FEELS THIS IS A SAFE DC PLAN. CM WILL CONTINUE TO ASSIST WITH DC PLANNING. ANGIE GIBBONS Coverage Notice Reviewer: [id number] - Angie Gibbons Notice Issued Date-Time: 02/20/2020 13:35 Notice Type: Patient Choice Letter Notice Delivered To: Family Member Relationship to Patient: Son Clinical Research Scientist Name: NAIMA CABRERA Delivery Method: HAND - Hand Delivered Fernanda Days: Prior Verbal Notification: Recipient Understood Notice: Yes Recipient Signature: Yes Med Rec Note Co-signed by Attending: Coverage Notice Comment: jennifer for [facility] Last DP export: 02/26/20 9:03 a Patient Name: NAKIA WALL Page [phone] at 2100 All edits/amendments must be made on the electronic document DICTATION DATE: 02/26/202100 QUALITY ASSURANCE INTERN: PERI 02/26/202100 RPT#: [id number] DC DATE:02/26/20 STATUS: DIS IN [facility] [address] [place] [address] END OF REPORT
== END 2020-02-26 15:41 | DRG 64 ==
LOC: D.ER 23:52 → D.M2 02-11 02:32 → D.ER 02-11 02:32 → D.M2 02-13 15:24 → D.SDCHOLD 02-13 15:24 → D.ICU 02-26 09:15
PROVIDERS: Emergency Medicine; Family Medicine; Surgery; ADMIT Family Medicine Adult Medicine; ATTEND Family Medicine Adult Medicine
PROC: 0DH63UZ Insertion of Feeding Device into Stomach, Percutaneous Approach (ICD-10-PCS; principal; 2020-02-17 12:15)
PROC: 05H533Z Insertion of Infusion Device into Right Subclavian Vein, Percutaneous Approach (ICD-10-PCS; 2020-02-23)
PROC: 5A12012 Performance of Cardiac Output, Single, Manual (ICD-10-PCS; 2020-02-26)
PROC: 0BH17EZ Insertion of Endotracheal Airway into Trachea, Via Natural or Artificial Opening (ICD-10-PCS; 2020-02-26)
PROC: 5A1935Z Respiratory Ventilation, Less than 24 Consecutive Hours (ICD-10-PCS; 2020-02-26)
DX: I63.89 Other cerebral infarction (principal); I21.A1 Myocardial infarction type 2; G93.41 Metabolic encephalopathy; J96.01 Acute respiratory failure with hypoxia; G81.01 Flaccid hemiplegia affecting right dominant side; R57.9 Shock, unspecified; K52.9 Noninfective gastroenteritis and colitis, unspecified; R47.01 Aphasia; I25.10 Atherosclerotic heart disease of native coronary artery without angina pectoris; I10 Essential (primary) hypertension; M32.9 Systemic lupus erythematosus, unspecified; F03.90 Unspecified dementia, unspecified severity, without behavioral disturbance, psychotic disturbance, mood disturbance, and anxiety; R00.0 Tachycardia, unspecified; K02.9 Dental caries, unspecified; K59.00 Constipation, unspecified; Z66 Do not resuscitate